=== PATIENT | male | born 1940 | race Caucasian/White ===

== ENCOUNTER 2016-05-23 13:34 | Emergency (ER) | payer MEDICARE, OTHER ==
[2016-05-23] MEDS ORDERED: Sodium Chloride 0.9% 1,000 ML IV ONE (13:54)
--- NOTE | 2016-05-23 13:56 | EDM.PDOC ---
ED HPI GI/ABDOMINAL - General Chief Complaint: Abdominal Pain Stated Complaint: STOMACH PAIN Time Seen by Provider: 05/23/16 13:54 Source of Information: Reports: Patient History Limitations: Reports: No limitations - History of Present Illness INITIAL COMMENTS - FREE TEXT/NARRATIVE: 76-year-old male presents to the ED with diffuse abdominal pain. He reports the pain is constant without colicky component. Spelled primarily in the upper abdomen. Patient states it feels similar to what he is 2 years ago when he had a small bowel obstruction. He did have to go to the OR and Dr. Page and released adhesions 2 repair his small bowel obstruction. Of note he had no previous abdominal surgery prior to that bowel obstruction. He reports she's not passing any flatus. Symptoms started about 0730 hours this morning. He has vomited once since he came to the hospital at partially undigested breakfast. Mostly bile. No blood. He smokes a pack of cigarettes per day he drinks at least 3 beers on a daily basis. Symptom Onset Date: 05/23/16 Symptom Onset Time: 07:30 Timing/Duration: Reports: Hour(s):, Constant, Getting worse, Gradual onset Location: other (Mostly periumbilical.) Quality: Reports: cramping, fullness, stabbing Severity: severe Worsens with: Reports: other (Nothing seems to make it better or worse. Vomiting perhaps his relieve the pain a small amount.) Context: Denies: sick contact, bad/questionable food, out of country travel, recent surgery, recent trauma, lifting, activity/exercise, other Associated Symptoms: Reports: denies other symptoms, loss of appetite. Denies: chest pain, back pain, testicular pain, groin pain, shoulder pain, constipation , diarrhea, bloody stools, fever/chills Treatments LAPPER: Reports: Other (see below) (None) - Related Data Allergies/ADRs: Allergies Allergy/AdvReac Type Severity Reaction Status Date / Time No Known Allergies Allergy Verified 05/23/16 13:45 Home Meds: Home Meds Albuterol/Ipratropium [Combivent] 2 puff INH QID #1 mdi 08/23/13 [Rx] Diltiazem [Cardizem CD] 180 mg PO DAILY #30 cap.cd 08/23/13 [Rx] Finasteride [Proscar] 5 mg PO DAILY 11/30/14 [History] Metoprolol Tartrate [Lopressor] 25 mg PO DAILY 11/30/14 [History] Multivitamins/Minerals/Lutein [Certavite SR with Lutein] 1 tab PO DAILY [History] Ranitidine HCl 300 mg PO DAILY 11/30/14 [History] Rosuvastatin [Crestor] 20 mg PO BEDTIME 11/30/14 [History] Pantoprazole [Protonix] 40 mg PO BID #30 tab.cr 12/01/14 [Rx] Sucralfate [Carafate] 1 gm PO Q6H #1200 ml 12/01/14 [Rx] Aspirin 81 mg PO BEDTIME 09/09/15 [History] Past Medical History HEENT History: Reports: Cataract, Impaired vision, Macular degeneration Other HEENT History: wears glasses Cardiovascular History: Reports: Afib (Hx), CAD, High cholesterol, Hypertension , [place], PTCA, SOB on exertion, Stents, Other (see below) Other Cardiovascular History: hyponatremia Respiratory History: Reports: Asthma, COPD, SOB (INCREASING) Gastrointestinal History: Reports: Diverticulosis, Gastritis, GERD, PUD ( Diagnosed about 8 yrs ago and was treated for H.pylori.), Other (see below) Other Gastrointestinal History: duodenitis, ulcers, esophogeal stricture Genitourinary History: Reports: BPH, Prostate disorder Musculoskeletal History: Reports: Osteoporosis Other Musculoskeletal History: Compression Fx x 3 Thoracic Neurological History: Reports: None Psychiatric History: Reports: None Endocrine/Metabolic History: Reports: None - Past Surgical History Female Surgical History: Social & Family History - Tobacco Use Smoking Status *Q: Current Every Day Smoker Years of Tobacco use: 50 Packs/Tins Daily: 0.5 Used Tobacco, but Quit: No Second Hand Smoke Exposure: No - Alcohol Use Days Per Week of Alcohol Use: 7 Number of Drinks Per Day: 3 Total Drinks Per Week: 21 - Recreational Drug Use Recreational Drug Use: No Drug Use in Last 12 Months: No - Living Situation & Occupation Living situation: Reports: Occupation: employed ED ROS GENERAL - Review of Systems Review Of Systems: See Below Constitutional: Reports: malaise, weakness, fatigue, decreased appetite. Denies : fever, chills, weight loss HEENT: Reports: No symptoms Respiratory: Reports: Shortness of Breath, Wheezing (Occasionally), Cough, Sputum (Chronic cough as he is a cigarette smoker.). Denies: Hemoptysis ( Usually brownish in color) Cardiovascular: Reports: Blood pressure problem, Dyspnea on exertion. Denies: Chest pain GI/Abdominal: Reports: Abdominal pain. Denies: Flatus (See history of present illness) : Reports: frequency (DrSherif usually x2.), other Musculoskeletal: Reports: neck pain, shoulder pain, back pain, joint pain ( Rogerio hips at times.) Skin: Reports: no symptoms Neurological: Reports: No Symptoms Psychiatric: Reports: No symptoms Hematologic/Lymphatic: Reports: no symptoms Immunologic: Reports: no symptoms ED EXAM, GI/ABD - Physical Exam Exam: See Below Exam Limited By: No limitations General Appearance: alert, moderate distress (Is in obvious discomfort.) Eyes: bilateral: normal appearance (No jaundice.) Throat/Mouth: Normal inspection, Normal lips, Normal oropharynx, Other Head: atraumatic, normocephalic Neck: normal inspection (Tongue is a little dry.), supple, non-tender, full range of motion. No: carotid bruit, lymphadenopathy (L), lymphadenopathy (R), thyromegaly Respiratory/Chest: decreased breath sounds, rhonchi (Decreased breath sounds to the posterior 30% of lung osorio.), wheezing ( Scattered rhonchi throughout both upper lobes. occasional expiratory wheeze.) Cardiovascular: regular rate, rhythm, no gallop, no JVD, no murmur GI/Abdominal: hyperactive bowel sounds (Throughout.), tenderness, distention ( Diffusely distended and tympanitic to percussion.), guarding (Mostly is just superior to the previous midline laparotomy wound. Can also palpate a quarter- sized hernia in this area.), rebound (Male) Exam: No hernia Back Exam: normal inspection, full range of motion. No: CVA tenderness (L), CVA tenderness (R) Extremities: normal inspection, normal range of motion, non-tender, no pedal edema, normal capillary refill Neurological: alert, oriented, CN II-XII intact, normal cognition, normal gait Psychiatric: normal affect, normal mood Skin Exam: Warm, Dry, Intact, Normal color, No rash EKG INTERPRETATION EKG Date: 05/23/16 Time: 14:15 Rhythm: NSR Rate (beats/min): 70 [place]: normal P-wave: present QRS: other (To is evident in V5 V6 leads 23 and aVF. 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 Also T waves are inverted in the 3 and aVF.) QT: prolonged (Mildly prolonged QT interval.) Course - Vital Signs Last Recorded V/S: Last Vital Signs Temp 35.9 C 05/23/16 13:45 Pulse 64 05/23/16 13:45 Resp 18 05/23/16 13:45 BP 200/98 H 05/23/16 13:45 Pulse Ox 99 05/23/16 13:45 - Orders/Labs/Meds Orders: Active Orders 24 hr Category Date Time Status EKG Documentation Completion [RC] STAT Care 05/23/16 13:55 Active Nasogastric Tube Management [Gastrointestinal Tube Mgmt Care 05/23/16 14:54 Active ] [RC] ASDIRECTED Sodium Chloride 0.9% @ 150 MLS/HR (1000ml Bag) Med 05/23/16 16:45 Ordered Sodium Chloride 0.9% [Normal Saline] 1,000 ml IV ASDIRECTED Nasogastric Orogastric Tube Insertion [OM.PC] Routine Oth 05/23/16 14:54 Ordered Medication Orders Sodium Chloride (Normal Saline) 1,000 mls @ 150 mls/hr IV ASDIRECTED ROXANNA Labs: Laboratory Tests 05/23/16 05/23/16 05/23/16 Range/Units 14:30 14:30 14:30 WBC 12.39 H (4.23-9.07) K/mm3 RBC 4.43 L (4.63-6.08) M/mm3 Hgb 14.6 (13.7-17.5) gm/L Hct 42.5 (40.1-51.0) % MCV 95.9 H (79.0-92.2) fl MCH 33.0 H (25.7-32.2) pg MCHC 34.4 (32.2-35.5) g/dl RDW Std Deviation 43.9 (35.1-43.9) fL Plt Count 261 (163-337) K/mm3 MPV 9.7 (9.4-12.3) fl Neutrophils % (Manual) 94 H (40-60) % Band Neutrophils % 0 (0-10) % Lymphocytes % (Manual) 5 L (20-40) % Atypical Lymphs % 0 % Monocytes % (Manual) 1 L (2-10) % Eosinophils % (Manual) 0 L (0.8-7.0) % Basophils % (Manual) 0 L (0.2-1.2) Platelet Estimate Adequate RBC Morph Comment Normal PT 10.1 (8.0-13.0) SECONDS INR 0.93 APTT (22-36) SECONDS Sodium 130 L (136-145) mEq/L Potassium 4.3 (3.5-5.1) mEq/L Chloride 96 L (98-107) mEq/L Carbon Dioxide 25 (21-32) mEq/L Anion Gap 13.3 (5-15) BUN 15 (7-18) mg/dL Creatinine 0.9 (0.7-1.3) mg/dL Est Cr Clr Drug Dosing 56.20 mL/min Estimated GFR (MDRD) > 60 (>60) mL/min BUN/Creatinine Ratio 16.7 (14-18) Glucose 142 H (83-115) mg/dL Calcium 9.3 (8.5-10.1) mg/dL Magnesium (1.8-2.4) mg/dl Total Bilirubin 0.7 (0.2-1.0) mg/dL AST 19 (15-37) U/L ALT 21 (16-63) U/L Alkaline Phosphatase 103 (46-116) U/L CK-MB (CK-2) (0-3.6) ng/ml Troponin I (0.00-0.056) ng/mL C-Reactive Protein 1.9 H* (<1.0) mg/dL Total Protein 7.6 (6.4-8.2) g/dl Albumin 4.1 (3.4-5.0) g/dl Globulin 3.5 gm/dL Albumin/Globulin Ratio 1.2 (1-2) Lipase 169 (73-393) U/L Urine Color (Yellow) Urine Appearance (Clear) Urine pH (5.0-8.0) Ur Specific [place] (1.005-1.030) Urine Protein (Negative) Urine Glucose (UA) (Negative) Urine Ketones (Negative) Urine Occult Blood (Negative) Urine Nitrite (Negative) Urine Bilirubin (Negative) Urine Urobilinogen (0.2-1.0) Ur Leukocyte Esterase (Negative) Urine RBC (0-5) /hpf Urine WBC (0-5) /hpf Ur Epithelial Cells (0-5) /hpf Urine Bacteria (FEW) /hpf Urine Mucus (FEW) /hpf 05/23/16 05/23/16 05/23/16 Range/Units 14:30 14:30 15:00 WBC (4.23-9.07) K/mm3 RBC (4.63-6.08) M/mm3 Hgb (13.7-17.5) gm/L Hct (40.1-51.0) % MCV (79.0-92.2) fl MCH (25.7-32.2) pg MCHC (32.2-35.5) g/dl RDW Std Deviation (35.1-43.9) fL Plt Count (163-337) K/mm3 MPV (9.4-12.3) fl Neutrophils % (Manual) (40-60) % Band Neutrophils % (0-10) % Lymphocytes % (Manual) (20-40) % Atypical Lymphs % % Monocytes % (Manual) (2-10) % Eosinophils % (Manual) (0.8-7.0) % Basophils % (Manual) (0.2-1.2) Platelet Estimate RBC Morph Comment PT (8.0-13.0) SECONDS INR APTT 23 (22-36) SECONDS Sodium (136-145) mEq/L Potassium (3.5-5.1) mEq/L Chloride (98-107) mEq/L Carbon Dioxide (21-32) mEq/L Anion Gap (5-15) BUN (7-18) mg/dL Creatinine (0.7-1.3) mg/dL Est Cr Clr Drug Dosing mL/min Estimated GFR (MDRD) (>60) mL/min BUN/Creatinine Ratio (14-18) Glucose (83-115) mg/dL Calcium (8.5-10.1) mg/dL Magnesium 1.8 (1.8-2.4) mg/dl Total Bilirubin (0.2-1.0) mg/dL AST (15-37) U/L ALT (16-63) U/L Alkaline Phosphatase (46-116) U/L CK-MB (CK-2) 2.7 (0-3.6) ng/ml Troponin I < 0.017 (0.00-0.056) ng/mL C-Reactive Protein (<1.0) mg/dL Total Protein (6.4-8.2) g/dl Albumin (3.4-5.0) g/dl Globulin gm/dL Albumin/Globulin Ratio (1-2) Lipase (73-393) U/L Urine Color Yellow (Yellow) Urine Appearance Clear (Clear) Urine pH 6.5 (5.0-8.0) Ur Specific [place] 1.025 (1.005-1.030) Urine Protein 1+ H (Negative) Urine Glucose (UA) Negative (Negative) Urine Ketones Trace H (Negative) Urine Occult Blood Negative (Negative) Urine Nitrite Negative (Negative) Urine Bilirubin Negative (Negative) Urine Urobilinogen 0.2 (0.2-1.0) Ur Leukocyte Esterase Negative (Negative) Urine RBC 0-5 (0-5) /hpf Urine WBC 0-5 (0-5) /hpf Ur Epithelial Cells 0-5 (0-5) /hpf Urine Bacteria Moderate H (FEW) /hpf Urine Mucus Moderate H (FEW) /hpf Meds: Medications Generic Name Dose Route Start Last Admin Trade Name Freq PRN Reason Stop Dose Admin Sodium Chloride 1,000 mls @ 150 mls/hr 05/23/16 16:45 Normal Saline IV ASDIRECTED ROXANNA Discontinued Medications Generic Name Dose Route Start Last Admin Trade Name Freq PRN Reason Stop Dose Admin Hydromorphone HCl 1 mg 05/23/16 14:02 05/23/16 15:02 Dilaudid IVPUSH 05/23/16 14:03 1 mg ONETIME ONE Administration Sodium Chloride 1,000 mls @ 500 mls/hr 05/23/16 13:54 05/23/16 15:00 Normal Saline IV 05/23/16 15:53 500 mls/hr ONETIME ONE Administration Lidocaine HCl 10 ml 05/23/16 15:04 05/23/16 16:44 Xylocaine 2% Jelly MUCMEM 05/23/16 15:05 10 ml ONETIME ONE Administration Metoclopramide HCl 10 mg 05/23/16 14:02 05/23/16 15:00 Reglan IVPUSH 03/22/17 14:03 10 mg ONETIME ONE Administration - Radiology Interpretation Free Text/Narrative:: 76-year-old male presents the ED with diffuse constant abdominal pain since shortly after awakening this morning. States around 0730 hours to 8:00 he developed upper abdominal constant aching pain which is progressively worsened. He is vomited once in the ED it mostly of undigested breakfast in bilious material. No blood noted. He recognizes he has not passed any flatus for the last 5 hours per rectum. States he had 3 somewhat loose bowel movements last evening however. No blood noted. Past history of bowel obstruction about 2 years ago requiring open laparotomy for release of adhesions. It's unclear whether there was an internal hernia. This was repaired by Dr. Fátima Page. She is a smoker pack per day and drinks 3 beers daily. Examination of his abdomen is compatible with bowel obstruction. He is distended and diffusely tympanitic to percussion with hypoactive bowel sounds. Plan repeat chest x-ray one view abdomen. Routine labs include serum lipase. PT PTT to be done as well. IV normal saline at 500 mils per hour. Given Dilaudid 1 mg IV and Reglan 10 mg IV for pain and nausea relief - Re-Assessments/Exams Free Text/Narrative Re-Assessment/Exam: 05/23/16 15:03 x-rays of the abdomen reveal obvious small bowel obstruction which appears to be distal. Plan nasogastric tube will be inserted via the left nostril. He will have to be admitted to the hospital. We'll have to see if there is going to be a bed available here or notified of that elsewhere. I did speak with Dr. Gavin Page who performed his last surgeries she certainly willing to see him in consultation probably tomorrow morning. She would prefer a 12 to 24-hour course of conservative management with nasogastric tube suction and pain pain management and IV fluids and see how he does. 05/23/16 15:27 Labs are back showing an elevated white count of 12.39. Differential pending hemoglobin is 14.6 hematocrit 42.5 platelets 261,000. PT is 10.1 INR 0.93 PTT is 23. Sodium is low at 130 potassium is 4.3 glucose 142 CRP is 1.9 lipase is 169. 05/23/16 16:22 at present no beds are available in [facility]. Since the patient has records to [facility] he prefers to go to [facility] if possible. Therefore call one call at [facility] to set up transfer. 05/23/16 16:50 patient has been accepted at [facility].Dr Cano--hospitalist has accepted care. CXR and KUB sent by Pacs. Departure - Departure Time of Disposition: 16:53 Disposition: DC/Tfer to Acute Hospital 02 Condition: fair Clinical Impression: Small bowel obstruction, Hyponatremia Forms: ED Department Discharge Additional Instructions: He should transferred to [facility] because her hospitals on diversion. - My Orders Last 24 Hours: My Active Orders 05/23/16 13:55 EKG Documentation Completion [RC] STAT 05/23/16 14:54 Nasogastric Tube Management [Gastrointestinal Tube Mgmt] [RC] ASDIRECTED Nasogastric Orogastric Tube Insertion [OM.PC] Routine 05/23/16 16:45 Sodium Chloride 0.9% @ 150 MLS/HR (1000ml Bag) Sodium Chloride 0.9% [Normal Saline] 1,000 ml IV ASDIRECTED - Assessment/Plan Last 24 Hours: My Active Orders 05/23/16 13:55 EKG Documentation Completion [RC] STAT 05/23/16 14:54 Nasogastric Tube Management [Gastrointestinal Tube Mgmt] [RC] ASDIRECTED Nasogastric Orogastric Tube Insertion [OM.PC] Routine 05/23/16 16:45 Sodium Chloride 0.9% @ 150 MLS/HR (1000ml Bag) Sodium Chloride 0.9% [Normal Saline] 1,000 ml IV ASDIRECTED
[2016-05-23] MEDS ORDERED: Metoclopramide 10 MG/2 ML SDV IVPUSH ONE (14:02)
[2016-05-23] MEDS ORDERED: HYDROmorphone 1 MG/ML Syringe IVPUSH ONE (14:02)
[2016-05-23] MEDS ORDERED: Lidocaine 2% Jelly 10 ML Urojet MUCMEM ONE (15:04)
--- NOTE | 2016-05-23 15:23 | CR ---
Chest: Frontal view of the chest was obtained. Comparison: Previous chest x-ray of 08/19/13. Heart size is normal. Tortuous thoracic aorta is seen. Slight granulomatous change felt to be present within the right upper lung which appears to be calcified. Lungs otherwise are clear. Mild degenerative change is scattered within the spine. Impression: 1. Incidental findings. Nothing acute is appreciated on frontal chest x-ray. Diagnostic code #2
--- NOTE | 2016-05-23 15:23 | CR ---
Abdomen: Supine view of the abdomen was obtained. Comparison: Previous abdominal x-ray of 08/20/13 is available. Dilated gas-filled loops of small bowel are seen primarily within the left abdomen. Lesser gas noted within more distal ileal loops. Small amount of rectal gas is seen. Bony structures are osteopenic. Degenerative change seen within the spine. Vascular calcification is present. Impression: 1. Gas dilated loops of small bowel suspicious for developing small bowel obstruction within the mid to distal small bowel. 2. Other incidental findings. Diagnostic code #3
[2016-05-23] MEDS ORDERED: Sodium Chloride 0.9% 1,000 ML IV SCH (16:45)
[2016-05-23 17:56] VITALS: BP 167/91
== END 2016-05-23 17:32 ==
LOC: JD.ED 13:34
DX: K56.69 Other intestinal obstruction (principal); E87.1 Hypo-osmolality and hyponatremia; I10 Essential (primary) hypertension; I25.2 Old myocardial infarction; I25.10 Atherosclerotic heart disease of native coronary artery without angina pectoris; E78.00 Pure hypercholesterolemia, unspecified; J45.909 Unspecified asthma, uncomplicated; J44.9 Chronic obstructive pulmonary disease, unspecified; M81.0 Age-related osteoporosis without current pathological fracture; K21.9 Gastro-esophageal reflux disease without esophagitis; F17.210 Nicotine dependence, cigarettes, uncomplicated; Z79.899 Other long term (current) drug therapy
CPT/HCPCS: 36415; 71010; 74000; 80053; 81001; 82553; 83690; 83735; 84484; 85025; 85610; 85730; 86140; 93005; 96361; 96374; 96375; 99285; J1170; J2765; J7040

== ENCOUNTER 2016-07-24 08:00 | Day surgery (SDC) | payer MEDICARE, OTHER ==
[~2016-07-24 08:00] MED LIST: Lactated Ringers 1,000 ML IV SCH; Lidocaine 1%/Sod Bicarbonate in NS 8.4% 1 ML Syringe PRN; Sodium Chloride 0.9% 10 ML Syringe FLUSH PRN
--- NOTE | 2016-07-24 08:24 | PCM.CONS ---
H&P History of Present Illness - General Date of Service: 07/24/16 Source of Information: Patient History Limitations: Reports: No Limitations - History of Present Illness Initial Comments - Free Text/Narative: The patient is a 76-year-old man who is a patient of Dr. Edy Asencio. They present today for screening colonoscopy, average risk, last colonoscopy 2006 with findings of diverticulosis. They were last seen in the clinic on 06/21. There have been no changes in their health since that time. They have no questions or concerns about today's procedures. ROS: No complaints today. - Related Data Allergies/Adverse Reactions: Allergies Allergy/AdvReac Type Severity Reaction Status Date / Time No Known Allergies Allergy Verified 05/23/16 13:45 Home Medications: Home Meds Albuterol/Ipratropium [Combivent] 2 puff INH QID #1 mdi 08/23/13 [Rx] Diltiazem [Cardizem CD] 180 mg PO DAILY #30 cap.cd 08/23/13 [Rx] Finasteride [Proscar] 5 mg PO DAILY 11/30/14 [History] Metoprolol Tartrate [Lopressor] 25 mg PO DAILY 11/30/14 [History] Multivitamins/Minerals/Lutein [Certavite SR with Lutein] 1 tab PO DAILY [History] Ranitidine HCl 300 mg PO DAILY 11/30/14 [History] Rosuvastatin [Crestor] 20 mg PO BEDTIME 11/30/14 [History] Pantoprazole [ProTONIX] 40 mg PO BID #30 tab.cr 12/01/14 [Rx] Sucralfate [Carafate] 1 gm PO Q6H #1200 ml 12/01/14 [Rx] Aspirin 81 mg PO BEDTIME 09/09/15 [History] Past Medical History HEENT History: Reports: Cataract, Impaired Vision, Macular Degeneration Other HEENT History: wears glasses Cardiovascular History: Reports: Afib (Hx), CAD, High Cholesterol, Hypertension , [place], PTCA, SOB on Exertion, Stents, Other (See Below) Other Cardiovascular History: hyponatremia Respiratory History: Reports: Asthma, COPD, SOB (INCREASING) Gastrointestinal History: Reports: Diverticulosis, Gastritis, GERD, PUD ( Diagnosed about 8 yrs ago and was treated for H.pylori.), Other (See Below) Other Gastrointestinal History: duodenitis, ulcers, esophogeal stricture Genitourinary History: Reports: BPH, Prostate Disorder Musculoskeletal History: Reports: Osteoporosis Other Musculoskeletal History: Compression Fx x 3 Thoracic Neurological History: Reports: None Psychiatric History: Reports: None Endocrine/Metabolic History: Reports: None - Past Surgical History Female Surgical History: Social & Family History - Tobacco Use Smoking Status *Q: Current Every Day Smoker Years of Tobacco use: 50 Packs/Tins Daily: 0.5 Used Tobacco, but Quit: No Second Hand Smoke Exposure: No - Caffeine Use Caffeine Use: Reports: None, Soda - Alcohol Use Days Per Week of Alcohol Use: 7 Number of Drinks Per Day: 3 Total Drinks Per Week: 21 - Recreational Drug Use Recreational Drug Use: No Drug Use in Last 12 Months: No - Living Situation & Occupation Living situation: Reports: Occupation: Employed H&P Review of Systems - Review of Systems: Review Of Systems: ROS reveals no pertinent complaints other than HPI. Exam - Exam Exam: See Below - Vital Signs Weight: 165 lb - Exam General: Alert, Oriented, Cooperative HEENT: Hearing Intact. No: Scleral Icterus Neck: Trachea Midline Lungs: Normal Respiratory Effort Cardiovascular: Regular Rate Abdomen: No: Peritoneal Signs, Distention Rectal (Males) Exam: Deferred Extremities: No: Cyanosis Skin: Warm, Dry, Intact Neurological: Cranial Nerves Intact, Normal Speech. No: Focal Deficit Neuro Extensive - Mental Status: Alert, Oriented x3, Normal Mood/Affect, Normal Cognition Psychiatric: Alert, Normal Affect, Normal Mood Consult PN Assessment/Plan Procedures: Procedures AIRWAY INHALATION TREATMENT (08/13/13) ASSAY OF LIPASE (05/23/16) ASSAY OF MAGNESIUM (05/23/16) ASSAY OF PHOSPHORUS (08/13/13) ASSAY OF SERUM ALBUMIN (08/13/13) ASSAY OF TROPONIN QUANT (05/23/16) ASSAY OF URINE CHLORIDE (08/13/13) ASSAY OF URINE OSMOLALITY (08/13/13) ASSAY OF URINE POTASSIUM (08/13/13) ASSAY OF URINE SODIUM (08/13/13) ASSAY THYROID STIM HORMONE (08/13/13) BLOOD CULTURE FOR BACTERIA (08/13/13) BLOOD TYPING SEROLOGIC ABO (08/13/13) BLOOD TYPING SEROLOGIC RH(D) (08/13/13) C DIFF AMPLIFIED PROBE (08/13/13) C-REACTIVE PROTEIN (05/23/16) CHEST X-RAY 1 VIEW FRONTAL (05/23/16) CHEST X-RAY 2VW FRONTAL&LATL (08/13/13) COMPLETE CBC AUTOMATED (08/13/13) COMPLETE CBC W/AUTO DIFF WBC (05/23/16) COMPREHEN METABOLIC PANEL (05/23/16) CREATINE MB FRACTION (05/23/16) CT ABD & PELVIS W/O CONTRAST (08/13/13) CT THORAX W/O DYE (08/13/13) CULTR BACTERIA EXCEPT BLOOD (08/13/13) DXA BONE DENSITY AXIAL (10/05/15) EGD BIOPSY SINGLE/MULTIPLE (09/12/15) EGD DIAGNOSTIC BRUSH WASH (01/02/16) ELECTROCARDIOGRAM TRACING (05/23/16) ELECTROLYTE PANEL (12/01/14) EMERGENCY DEPT VISIT (05/23/16) EMERGENCY DEPT VISIT (08/10/13) EVALUATE PT USE OF INHALER (08/13/13) GAIT TRAINING THERAPY (08/13/13) GLUCOSE BLOOD TEST (08/13/13) HYDRATE IV INFUSION ADD-ON (05/23/16) MEASURE BLOOD OXYGEN LEVEL (08/13/13) MEASURE BLOOD OXYGEN LEVEL (08/13/13) MEASURE BLOOD OXYGEN LEVEL (08/13/13) METABOLIC PANEL TOTAL CA (09/12/15) PROTHROMBIN TIME (05/23/16) PT EVALUATION (08/13/13) RBC ANTIBODY SCREEN (08/13/13) RBC SED RATE AUTOMATED (08/13/13) ROUTINE VENIPUNCTURE (05/23/16) SMEAR GRAM STAIN (08/13/13) THER/PROPH/DIAG INJ IV PUSH (05/23/16) THERAPEUTIC ACTIVITIES (08/13/13) THERAPEUTIC EXERCISES (08/13/13) THROMBOPLASTIN TIME PARTIAL (05/23/16) TISSUE EXAM BY PATHOLOGIST (12/01/14) TISSUE EXAM BY PATHOLOGIST (08/13/13) TTE W/DOPPLER COMPLETE (08/13/13) TX/PRO/DX INJ NEW DRUG ADDON (05/23/16) UPR/LXTR ART STDY 3+ LVLS (11/19/14) URINALYSIS AUTO W/SCOPE (05/23/16) URINE BACTERIA CULTURE (08/13/13) VANOMYCIN DNA AMP PROBE (08/13/13) X-RAY EXAM OF ABDOMEN (05/23/16) X-RAY EXAM OF ABDOMEN (08/10/13) X-RAY EXAM OF HIP (08/13/13) (1) Encounter for screening colonoscopy SNOMED Code(s): 520259578, 849909628 Code(s): Z12.11 - ENCOUNTER FOR SCREENING FOR MALIGNANT NEOPLASM OF COLON Current Visit: Yes Problem List Initiated/Reviewed/Updated: Yes Plan: 76-year-old man presenting for screening colonoscopy Proceed as planned. Risks and benefits reviewed without further questions or concerns. Consent obtained.
--- NOTE | 2016-07-24 08:31 | PCM.PREANE ---
Preanesthetic Assessment - Anesthesia/Transfusion/Family Hx Anesthesia History: Prior Anesthesia Without Reaction Family History of Anesthesia Reaction: No Transfusion History: No Prior Transfusion(s) Intubation History: Unknown - Review of Systems General: No Symptoms Pulmonary: No Symptoms Cardiovascular: No Symptoms Gastrointestinal: No symptoms Neurological: No Symptoms Other: Reports: None - Physical Assessment NPO Status Date: 07/23/16 NPO Status Time: 21:30 O2 Sat by Pulse Oximetry: 99 Respiratory Rate: 20 Vital Signs: Last Vital Signs Temp 36.3 C 07/24/16 08:00 Pulse 64 07/24/16 08:00 Resp 20 07/24/16 08:00 BP 146/70 H 07/24/16 08:00 Pulse Ox 99 07/24/16 08:00 Height: 1.57 m Weight: 74.843 kg ASA Class: 2 Mental Status: Alert & Oriented x3 Airway Class: Mallampati = 2 Dentition: Reports: Normal Dentition Thyro-Mental Finger Breadths: 3 Mouth Opening Finger Breadths: 3 ROM/Head Extension: Full Lungs: Clear to auscultation, Normal respiratory effort Cardiovascular: Regular Rate, Regular Rhythm - Allergies Allergies/Adverse Reactions: Allergies Allergy/AdvReac Type Severity Reaction Status Date / Time No Known Allergies Allergy Verified 05/23/16 13:45 - Anesthesia Plan Beta Zoey: Metoprolol Med Last Dose Date: 07/23/16 Med Last Dose Time: 07:30 - Acknowledgements Anesthesia Type Planned: MAC Pt an Appropriate Candidate for the Planned Anesthesia: Yes Alternatives and Risks of Anesthesia Discussed w Pt/Guardian: Yes Pt/Guardian Understands and Agrees with Anesthesia Plan: Yes PreAnesthesia Questionnaire HEENT History: Reports: Cataract, Impaired Vision, Macular Degeneration Other HEENT History: wears glasses Cardiovascular History: Reports: Afib (Hx), CAD, High Cholesterol, Hypertension , [place], PTCA, SOB on Exertion (pt states uses inhaler only when needed-last time was on Saturday), Stents, Other (See Below) Other Cardiovascular History: hyponatremia Respiratory History: Reports: Asthma, COPD, SOB (INCREASING, pt states with exertion, denies with flight of stairs) Gastrointestinal History: Reports: Diverticulosis, Gastritis, GERD, PUD ( Diagnosed about 8 yrs ago and was treated for H.pylori.), Other (See Below) Other Gastrointestinal History: duodenitis, ulcers, esophogeal stricture Genitourinary History: Reports: BPH, Prostate Disorder Musculoskeletal History: Reports: Osteoporosis Other Musculoskeletal History: Compression Fx x 3 Thoracic Neurological History: Reports: None Psychiatric History: Reports: None Endocrine/Metabolic History: Reports: None - Past Surgical History Head Surgeries/Procedures: Reports: None HEENT Surgical History: Reports: Cataract Surgery Cardiovascular Surgical History: Reports: Coronary Artery Stent Respiratory Surgical History: Reports: None GI Surgical History: Reports: Colonoscopy, EGD, Small Bowel, Other (See Below) ( laparotomy) Female Surgical History: Reports: None Male Surgical History: Reports: None Endocrine Surgical History: Reports: None Neurological Surgical History: Reports: None Musculoskeletal Surgical History: Reports: None Oncologic Surgical History: Reports: None Dermatological Surgical History: Reports: None - SUBSTANCE USE Smoking Status *Q: Current Every Day Smoker Tobacco Use Within Last Twelve Months: Cigarettes (1 PPD X 60 yrs) Second Hand Smoke Exposure: No Days Per Week of Alcohol Use: 7 Number of Drinks Per Day: 3 Total Drinks Per Week: 21 Recreational Drug Use History: No - HOME MEDS Home Medications: Home Meds Albuterol/Ipratropium [Combivent] 2 puff INH QID #1 mdi 08/23/13 [Rx] Diltiazem [Cardizem CD] 180 mg PO DAILY #30 cap.cd 08/23/13 [Rx] Finasteride [Proscar] 5 mg PO DAILY 11/30/14 [History] Metoprolol Tartrate [Lopressor] 25 mg PO DAILY 11/30/14 [History] Multivitamins/Minerals/Lutein [Certavite SR with Lutein] 1 tab PO DAILY [History] Ranitidine HCl 300 mg PO DAILY 11/30/14 [History] Rosuvastatin [Crestor] 20 mg PO BEDTIME 11/30/14 [History] Pantoprazole [ProTONIX] 40 mg PO BID #30 tab.cr 12/01/14 [Rx] Sucralfate [Carafate] 1 gm PO Q6H #1200 ml 12/01/14 [Rx] Aspirin 81 mg PO BEDTIME 09/09/15 [History] - CURRENT (IN HOUSE) MEDS Current Meds: Current Medications Lactated Ringer's (Ringers, Lactated) 1,000 mls @ 125 mls/hr IV ASDIRECTED ROXANNA Stop: 05/23/17 23:00 Last Admin: 07/24/16 08:15 Dose: 125 mls/hr Lidocaine/Sodium Bicarbonate (Buffered Lidocaine 1% In Ns 8.4%) 0.25 ml .XX ONETIME PRN PRN Reason: Prior to IV Start Stop: 07/24/16 18:00 Last Admin: 07/24/16 08:15 Dose: 0.25 ml Sodium Chloride (Saline Flush) 10 ml FLUSH ASDIRECTED PRN PRN Reason: Keep Vein Open Stop: 07/24/16 18:00 Discontinued Medications Propofol (Diprivan 20 Ml) Confirm Administered Dose 200 mg .ROUTE .STK-MED ONE Stop: 07/24/16 08:34
[2016-07-24] MEDS ORDERED: Propofol 200 MG/20 ML SDV ONE (08:33)
--- NOTE | 2016-07-24 09:17 | PCM48HPAN ---
Post Anesthesia Note - EVALUATION WITHIN 48HRS OF ANESTHETIC Vital Signs in Normal Range: Yes Patient Participated in Evaluation: Yes Respiratory Function Stable: Yes Airway Patent: Yes Cardiovascular Function Stable: Yes Hydration Status Stable: Yes Pain Control Satisfactory: Yes Nausea and Vomiting Control Satisfactory: Yes Mental Status Recovered: Yes
--- NOTE | 2016-07-24 09:32 | PCM.OPNOTE ---
- General Post-Op/Procedure Note Date of Surgery/Procedure: 07/24/16 Operative Procedure(s): Screening colonoscopy Pre Op Diagnosis: Encounter for screening colonoscopy Post-Op Diagnosis: Diverticulosis Anesthesia Technique: MAC Primary Surgeon: Fátima Page Anesthesia Provider: Joelle Hilario Fluid Replacement, Intraop: 650 (mL crystalloid ) EBL in mLs: 0 Complications: None Condition: Good Free Text/Narrative:: INDICATION FOR PROCEDURE: The patient is a 76-year-old man who was referred to me by Dr. Edy Asencio for evaluation for screening colonoscopy. Performing a screening colonoscopy and the associated risks of the procedure had been discussed with the patient. His last colonoscopy was in 2006, he had no polyps at that time. The patient found these risks acceptable and agreed to proceed. DESCRIPTION OF PROCEDURE: The patient was taken to the operating room and placed in left lateral decubitus position. After induction of adequate sedation , a digital rectal exam was performed which was unremarkable. The patient's prostate was nonnodular and not significantly enlarged. An adult Olympus colonoscope was inserted into the rectum and guided under direct visualization to the appendiceal orifice and ileocecal valve. The scope was then slowly withdrawn through the colon. The quality of the prep was excellent. There was no evidence of angiodysplasias or mass lesions. There was severe diverticulosis of the sigmoid colon. There were a few patchy erythematous areas hinting and may be very slight diverticulitis. The scope was withdrawn into the rectum and retroflexed. There was no significant prominence of the patient's internal hemorrhoids. The scope was straightened, the colon was desufflated, and the scope was withdrawn. The patient was awakened from sedation and transferred to the recovery room in stable condition having tolerated the procedure well. POSTOPERATIVE PLAN: The patient does not require any treatment for the mild patchy erythematous areas noted in the sigmoid colon. He is asymptomatic. He will not need a repeat colonoscopy unless he has a change in bowel habits or other concerning symptoms. He is to call the office with any questions or concerns. Due to his diverticulosis, a high-fiber diet and avoiding constipation is recommended.
[2016-07-24 09:52] VITALS: BP 116/72
== END 2016-07-24 09:50 | disposition home or self-care (01) ==
LOC: JD.SDS 08:00
PROVIDERS: ATTEND Surgery
DX: Z12.11 Encounter for screening for malignant neoplasm of colon (principal); K57.30 Diverticulosis of large intestine without perforation or abscess without bleeding; I10 Essential (primary) hypertension; J44.9 Chronic obstructive pulmonary disease, unspecified; F17.210 Nicotine dependence, cigarettes, uncomplicated; Z95.5 Presence of coronary angioplasty implant and graft; Z98.890 Other specified postprocedural states; N40.0 Benign prostatic hyperplasia without lower urinary tract symptoms; E87.1 Hypo-osmolality and hyponatremia
CPT/HCPCS: G0121; J7120; J2704

== ENCOUNTER 2017-08-15 17:19 | Emergency (ER) | payer OTHER, MEDICARE ==
[2017-08-15 17:37] VITALS: BP 133/75
[2017-08-15] MEDS ORDERED: Sodium Chloride 0.9% 10 ML Syringe FLUSH PRN ×2 (17:42→19:53)
[2017-08-15] MEDS ORDERED: Ondansetron 4 MG/2 ML SDV IVPUSH ONE (17:43)
[2017-08-15] MEDS ORDERED: Sodium Chloride 0.9% 1,000 ML IV SCH (17:45)
[2017-08-15] MEDS ORDERED: HYDROmorphone 0.5 MG/0.5 ML SYRINGE IVPUSH ONE (18:11)
--- NOTE | 2017-08-15 18:18 | EDM.PDOC ---
ED HPI GENERAL MEDICAL PROBLEM - General Chief Complaint: Abdominal Pain Stated Complaint: ABDOMINAL PAIN Time Seen by Provider: 08/15/17 17:47 Source of Information: Reports: Patient History Limitations: Reports: No Limitations - History of Present Illness INITIAL COMMENTS - FREE TEXT/NARRATIVE: Patient is a 77-year-old male who presents to the ED complaining of lower abdominal pain. Pain is sharp and crampy in nature localized with no radiation. This started this past Saturday and has progressively gotten worse since. He's been nauseated with multiple episodes of emesis. Unable to eat or drink anything since Saturday. He is concerned that he has twisted bowel again. He has a history resection of colon May 2016 for similar symptoms. In addition he states portion of the small bowel had to be resected [address] Page. He has a large surgical incision midline with a large ventral and inguinal hernia present as well to the lower border. Upon admission pain is severe in nature. There's been no documented fever, chest pain, shortness of breath, dysuria, hematuria, bloody emesis, or any additional complaints. States he's had one loose bowel movement yesterday with no blood present. He has not been passing any gas but notes increasing burping. Lower Abdomen Pain Score (Numeric/FACES): 8 - Related Data Allergies Allergy/AdvReac Type Severity Reaction Status Date / Time No Known Allergies Allergy Verified 08/15/17 17:37 Home Meds: Home Meds Diltiazem [Cardizem CD] 180 mg PO DAILY #30 cap.cd 08/23/13 [Rx] Finasteride [Proscar] 5 mg PO DAILY 11/30/14 [History] Metoprolol Tartrate [Lopressor] 25 mg PO DAILY 11/30/14 [History] Multivitamins/Minerals/Lutein [Certavite SR with Lutein] 1 tab PO DAILY [History] Ranitidine HCl 150 mg PO BID 11/30/14 [History] Rosuvastatin [Crestor] 20 mg PO BEDTIME 11/30/14 [History] Pantoprazole [ProTONIX] 40 mg PO BID #30 tab.cr 12/01/14 [Rx] Aspirin 81 mg PO BEDTIME 09/09/15 [History] Albuterol/Ipratropium [Combivent] 2 puff INH Q4H PRN 08/15/17 [History] Cholecalciferol (Vitamin D3) [Vitamin D3] 2,000 unit PO DAILY 08/15/17 [History] Denosumab [Prolia] 1 ml SUBCUT ASDIRECTED 08/15/17 [History] Sucralfate [Carafate] 1 gm PO DAILY 08/15/17 [History] Past Medical History HEENT History: Reports: Cataract, Impaired Vision, Macular Degeneration Other HEENT History: wears glasses Cardiovascular History: Reports: Afib (Hx), CAD, High Cholesterol, Hypertension , [place], PTCA, SOB on Exertion (pt states uses inhaler only when needed-last time was on Saturday), Stents, Other (See Below) Other Cardiovascular History: hyponatremia Respiratory History: Reports: Asthma, COPD, SOB (INCREASING, pt states with exertion, denies with flight of stairs) Gastrointestinal History: Reports: Diverticulosis, Gastritis, GERD, PUD ( Diagnosed about 8 yrs ago and was treated for H.pylori.), Other (See Below) Other Gastrointestinal History: duodenitis, ulcers, esophogeal stricture Genitourinary History: Reports: BPH, Prostate Disorder Musculoskeletal History: Reports: Osteoporosis Other Musculoskeletal History: Compression Fx x 3 Thoracic Neurological History: Reports: None Psychiatric History: Reports: None Endocrine/Metabolic History: Reports: None - Past Surgical History Head Surgeries/Procedures: Reports: None HEENT Surgical History: Reports: Cataract Surgery Cardiovascular Surgical History: Reports: Coronary Artery Stent Respiratory Surgical History: Reports: None GI Surgical History: Reports: Colonoscopy, EGD, Small Bowel, Other (See Below) ( laparotomy) Female Surgical History: Reports: None Male Surgical History: Reports: None Endocrine Surgical History: Reports: None Neurological Surgical History: Reports: None Musculoskeletal Surgical History: Reports: None Oncologic Surgical History: Reports: None Dermatological Surgical History: Reports: None Social & Family History - Caffeine Use Caffeine Use: Reports: None, Soda - Living Situation & Occupation Living situation: Reports: Occupation: Employed ED ROS GENERAL - Review of Systems Review Of Systems: ROS reveals no pertinent complaints other than HPI. ED EXAM, GI/ABD - Physical Exam Exam: See Below Exam Limited By: No Limitations General Appearance: Alert, WD/WN, Moderate Distress Ears: Hearing Grossly Normal Nose: Normal Inspection Throat/Mouth: Normal Voice, No Airway Compromise Neck: Normal Inspection, Supple Respiratory/Chest: No Respiratory Distress, Lungs Clear, Normal Breath Sounds, No Accessory Muscle Use, Chest Non-Tender Cardiovascular: Normal Peripheral Pulses, Regular Rate, Rhythm, No Murmur GI/Abdominal Exam: Distended, Tender (Suprapubic region along the left inguinal region with hernia present. ), Abnormal Bowel Sounds (hypoactive), Other ( Ventral Hernia present. Large surgical midline incision. No peritoneal findings. ) Back Exam: Normal Inspection Extremities: Normal Inspection Neurological: Alert, Oriented, CN II-XII Intact, Normal Cognition, No Motor/ Sensory Deficits Psychiatric: Normal Affect, Normal Mood Skin Exam: Warm, Dry, Intact, Normal Color Course - Vital Signs Last Recorded V/S: Last Vital Signs Temp 97.3 F 08/15/17 17:36 Pulse 63 08/15/17 17:36 Resp 16 08/15/17 17:36 BP 133/75 08/15/17 17:36 Pulse Ox 98 08/15/17 17:36 - Orders/Labs/Meds Orders: Active Orders 24 hr Category Date Time Status Peripheral IV Care [RC] . DIRECTED Care 08/15/17 17:42 Active Abdomen Series w Chest 1V [CR] Stat Exams 08/15/17 17:42 Taken CULTURE BLOOD [BC] Stat Lab 08/15/17 18:08 Received CULTURE BLOOD [BC] Stat Lab 08/15/17 18:15 Received Sodium Chloride 0.9% [Normal Saline] 1,000 ml Med 08/15/17 17:45 Active IV ASDIRECTED Sodium Chloride 0.9% [Saline Flush] Med 08/15/17 17:42 Active 10 ml FLUSH ASDIRECTED PRN Sodium Chloride 0.9% [Saline Flush] Med 08/15/17 19:53 Active 10 ml FLUSH ONETIME PRN Blood Culture x2 Reflex Set [OM.PC] Stat Oth 08/15/17 17:43 Ordered NG [Nasogastric Orogastric Tube Insertion] [OM.PC] Oth 08/15/17 18:10 Ordered Routine Peripheral IV Insertion Adult [OM.PC] Routine Oth 08/15/17 17:42 Ordered Medication Orders Sodium Chloride (Normal Saline) 1,000 mls @ 125 mls/hr IV ASDIRECTED ROXANNA Last Admin: 08/15/17 17:48 Dose: 125 mls/hr Sodium Chloride (Saline Flush) 10 ml FLUSH ASDIRECTED PRN PRN Reason: Keep Vein Open Last Admin: 08/15/17 17:48 Dose: 10 ml Sodium Chloride (Saline Flush) 10 ml FLUSH ONETIME PRN PRN Reason: IV FLUSH Last Admin: 08/15/17 20:14 Dose: 10 ml Labs: Laboratory Tests 08/15/17 08/15/17 08/15/17 Range/Units 17:30 17:30 17:30 WBC 7.92 (4.23-9.07) K/mm3 RBC 4.34 L (4.63-6.08) M/mm3 Hgb 13.9 (13.7-17.5) gm/L Hct 40.6 (40.1-51.0) % MCV 93.5 H (79.0-92.2) fl MCH 32.0 (25.7-32.2) pg MCHC 34.2 (32.2-35.5) g/dl RDW Std Deviation 42.0 (35.1-43.9) fL Plt Count 283 (163-337) K/mm3 MPV 9.1 L (9.4-12.3) fl Neutrophils % (Manual) 75 H (40-60) % Band Neutrophils % 2 (0-10) % Lymphocytes % (Manual) 16 L (20-40) % Atypical Lymphs % 0 % Monocytes % (Manual) 7 (2-10) % Eosinophils % (Manual) 0 L (0.8-7.0) % Basophils % (Manual) 0 L (0.2-1.2) Platelet Estimate Adequate RBC Morph Comment Normal PT 10.4 (9.5-12.1) SECONDS INR 0.95 APTT 27 (24-31) SECONDS Sodium 126 L (136-145) mEq/L Potassium 4.0 (3.5-5.1) mEq/L Chloride 92 L (98-107) mEq/L Carbon Dioxide 23 (21-32) mEq/L Anion Gap 15.0 (5-15) BUN 11 (7-18) mg/dL Creatinine 0.8 (0.7-1.3) mg/dL Est Cr Clr Drug Dosing 59.72 mL/min Estimated GFR (MDRD) > 60 (>60) mL/min BUN/Creatinine Ratio 13.8 L (14-18) Glucose 129 H (83-115) mg/dL Lactic Acid (0.4-2.0) mmol/L Calcium 9.5 (8.5-10.1) mg/dL Total Bilirubin 0.8 (0.2-1.0) mg/dL AST 20 (15-37) U/L ALT 21 (16-63) U/L Alkaline Phosphatase 61 (46-116) U/L C-Reactive Protein 1.2 H* (<1.0) mg/dL Total Protein 7.6 (6.4-8.2) g/dl Albumin 4.1 (3.4-5.0) g/dl Globulin 3.5 gm/dL Albumin/Globulin Ratio 1.2 (1-2) Lipase 135 (73-393) U/L Urine Color (Yellow) Urine Appearance (Clear) Urine pH (5.0-8.0) Ur Specific [place] (1.005-1.030) Urine Protein (Negative) Urine Glucose (UA) (Negative) Urine Ketones (Negative) Urine Occult Blood (Negative) Urine Nitrite (Negative) Urine Bilirubin (Negative) Urine Urobilinogen (0.2-1.0) Ur Leukocyte Esterase (Negative) Urine RBC (0-5) /hpf Urine WBC (0-5) /hpf Ur Epithelial Cells (0-5) /hpf Urine Bacteria (FEW) /hpf Urine Mucus (FEW) /hpf 08/15/17 08/15/17 08/15/17 Range/Units 18:08 21:10 21:40 WBC (4.23-9.07) K/mm3 RBC (4.63-6.08) M/mm3 Hgb (13.7-17.5) gm/L Hct (40.1-51.0) % MCV (79.0-92.2) fl MCH (25.7-32.2) pg MCHC (32.2-35.5) g/dl RDW Std Deviation (35.1-43.9) fL Plt Count (163-337) K/mm3 MPV (9.4-12.3) fl Neutrophils % (Manual) (40-60) % Band Neutrophils % (0-10) % Lymphocytes % (Manual) (20-40) % Atypical Lymphs % % Monocytes % (Manual) (2-10) % Eosinophils % (Manual) (0.8-7.0) % Basophils % (Manual) (0.2-1.2) Platelet Estimate RBC Morph Comment PT (9.5-12.1) SECONDS INR APTT (24-31) SECONDS Sodium 126 L (136-145) mEq/L Potassium 4.4 (3.5-5.1) mEq/L Chloride 90 L (98-107) mEq/L Carbon Dioxide 27 (21-32) mEq/L Anion Gap 13.4 (5-15) BUN 10 (7-18) mg/dL Creatinine 0.9 (0.7-1.3) mg/dL Est Cr Clr Drug Dosing 53.08 mL/min Estimated GFR (MDRD) > 60 (>60) mL/min BUN/Creatinine Ratio 11.1 L (14-18) Glucose 108 (83-115) mg/dL Lactic Acid 1.3 (0.4-2.0) mmol/L Calcium 8.9 (8.5-10.1) mg/dL Total Bilirubin (0.2-1.0) mg/dL AST (15-37) U/L ALT (16-63) U/L Alkaline Phosphatase (46-116) U/L C-Reactive Protein (<1.0) mg/dL Total Protein (6.4-8.2) g/dl Albumin (3.4-5.0) g/dl Globulin gm/dL Albumin/Globulin Ratio (1-2) Lipase (73-393) U/L Urine Color Yellow (Yellow) Urine Appearance Clear (Clear) Urine pH 7.0 (5.0-8.0) Ur Specific [place] 1.015 (1.005-1.030) Urine Protein Negative (Negative) Urine Glucose (UA) Negative (Negative) Urine Ketones 1+ H (Negative) Urine Occult Blood Negative (Negative) Urine Nitrite Negative (Negative) Urine Bilirubin Negative (Negative) Urine Urobilinogen 2.0 H (0.2-1.0) Ur Leukocyte Esterase Negative (Negative) Urine RBC Not seen (0-5) /hpf Urine WBC 0-5 (0-5) /hpf Ur Epithelial Cells 5-10 H (0-5) /hpf Urine Bacteria Not seen (FEW) /hpf Urine Mucus Not seen (FEW) /hpf Meds: Medications Generic Name Dose Route Start Last Admin Trade Name Freq PRN Reason Stop Dose Admin Sodium Chloride 1,000 mls @ 125 mls/hr 08/15/17 17:45 08/15/17 17:48 Normal Saline IV 125 mls/hr ASDIRECTED ROXANNA Administration Sodium Chloride 10 ml 08/15/17 17:42 08/15/17 17:48 Saline Flush FLUSH 10 ml ASDIRECTED PRN Administration Keep Vein Open Sodium Chloride 10 ml 08/15/17 19:53 08/15/17 20:14 Saline Flush FLUSH 10 ml ONETIME PRN Administration IV FLUSH Discontinued Medications Generic Name Dose Route Start Last Admin Trade Name Chanoq PRN Reason Stop Dose Admin Diatrizoate Meglum/Diatrizoate Sod 120 ml 08/15/17 19:53 08/15/17 20:14 Gastrografin 37% PO 08/15/17 19:54 90 ml ONETIME ONE Administration Hydromorphone HCl 0.5 mg 08/15/17 18:11 08/15/17 18:17 Dilaudid IVPUSH 08/15/17 18:12 0.5 mg ONETIME ONE Administration Iopamidol 100 ml 08/15/17 19:53 08/15/17 20:14 Isovue-300 (61%) IVPUSH 08/15/17 19:54 100 ml ONETIME ONE Administration Ondansetron HCl 4 mg 08/15/17 17:43 08/15/17 17:49 Zofran IVPUSH 08/15/17 17:44 4 mg ONETIME ONE Administration - Re-Assessments/Exams Free Text/Narrative Re-Assessment/Exam: IV established with NS and Zofran 4 mg IVP. Initial labs and studies include: CBC, CMP, blood cultures 2, left gastric, lipase, UA, CRP, and chest x-ray with abdominal series. X-ray of the chest revealed no acute findings. X-ray of the abdomen revealed large loop of distended bowel with multiple airfluid levels. X-rays reveiwed with Dr. Andrew Grover. NG tube ordered. [address] Griffin, IV established with NS and Zofran 4 mg IVP. Initial labs and studies include: CBC, CMP, blood cultures 2, left gastric, lipase, UA, CRP, and chest x-ray with abdominal series. X-ray of the chest revealed no acute findings. X-ray of the abdomen revealed large loop of distended bowel with multiple airfluid levels. X-rays reveiwed with Dr. Andrew Grover. NG tube ordered. [address] Griffin. Agrees with plan. Requests CT of the abdomen and pelvis with contrast. Oral contrast can be administered through the NG tube and clamped. Lactic acid is pending. Otherwise other lab results were discussed with him. Coag studies ordered as well. Lactic Acid 1.3. Per nursing staff patient has had approximately 1500mls of stomach contents suctioned out. CT abdomen and pelvis Technique: Multiple axial sections were obtained from above the dome of the diaphragm inferiorly through the pubic symphysis. Intravenous contrast was utilized. Oral contrast was given which remains mostly within the stomach. Delayed images were also obtained through the bladder. Comparison: Prior CT abdomen and pelvis exam of 08/12/13. Findings: Visualized lung bases shows nothing acute. Liver shows no focal abnormality. Spleen appears within normal limits. Adrenal glands show no nodule. Kidneys show symmetric contrast enhancement without hydronephrosis or mass. Left kidney is slightly smaller than the right side which is a stable finding. Pancreas shows no discrete abnormality. Aorta shows atherosclerotic change which continues into the iliac vessels. No aneurysm is seen. No retroperitoneal adenopathy is noted. Dilated fluid-filled small bowel loops are seen. Left inguinal hernia is noted. This is most likely the etiology for the small bowel obstruction No pelvic mass or adenopathy is noted. Delayed images shows contrast within the distal ureters and bladder. No free fluid is seen. Free air felt to be present within the right upper abdomen next to the liver. Impression: 1. Dilated small bowel loops with left inguinal hernia. Left inguinal hernia is most likely the etiology for the small bowel obstruction. 2. Possible small amount of free air within the right upper abdomen next to the liver. 3. Other incidental findings. Diagnostic code #5 08/15/17 20:48 Dr. Griffin has spoken with the patient and family. Reviewed the CT study. Do to the patient's age and comorbidities. He is at increased risk of of developing post surgical complications thus request transfer to [facility]. [address] Dr. Griffin has spoke with Dr. Dennis aviation program manager General Surgeon at [facility]. Dr. Dennis has accepted the patient. Requests patient be transported to the [facility] for evaluation prior to admission. Transfer paperwork has been completed. Ambulance has been notified. Departure - Departure Time of Disposition: 21:24 Disposition: DC/Tfer to Acute Hospital 02 Condition: Fair Clinical Impression: Left inguinal hernia - Discharge Information Referrals: Edy Asencio MD [Primary Care Provider] - Forms: ED Department Discharge - My Orders Last 24 Hours: My Active Orders 08/15/17 17:42 Peripheral IV Care [RC] . DIRECTED Abdomen Series w Chest 1V [CR] Stat Sodium Chloride 0.9% [Saline Flush] 10 ml FLUSH ASDIRECTED PRN Peripheral IV Insertion Adult [OM.PC] Routine 08/15/17 17:43 Blood Culture x2 Reflex Set [OM.PC] Stat 08/15/17 17:45 Sodium Chloride 0.9% [Normal Saline] 1,000 ml IV ASDIRECTED 08/15/17 18:08 CULTURE BLOOD [BC] Stat 08/15/17 18:10 NG [Nasogastric Orogastric Tube Insertion] [OM.PC] Routine 08/15/17 18:15 CULTURE BLOOD [BC] Stat 08/15/17 19:53 Sodium Chloride 0.9% [Saline Flush] 10 ml FLUSH ONETIME PRN - Assessment/Plan Last 24 Hours: My Active Orders 08/15/17 17:42 Peripheral IV Care [RC] . DIRECTED Abdomen Series w Chest 1V [CR] Stat Sodium Chloride 0.9% [Saline Flush] 10 ml FLUSH ASDIRECTED PRN Peripheral IV Insertion Adult [OM.PC] Routine 08/15/17 17:43 Blood Culture x2 Reflex Set [OM.PC] Stat 08/15/17 17:45 Sodium Chloride 0.9% [Normal Saline] 1,000 ml IV ASDIRECTED 08/15/17 18:08 CULTURE BLOOD [BC] Stat 08/15/17 18:10 NG [Nasogastric Orogastric Tube Insertion] [OM.PC] Routine 08/15/17 18:15 CULTURE BLOOD [BC] Stat 08/15/17 19:53 Sodium Chloride 0.9% [Saline Flush] 10 ml FLUSH ONETIME PRN
[2017-08-15] MEDS ORDERED: Diatrizoate Meglumine/Diatrizoate Sodium 37% 120 ML Bottle PO ONE (19:53)
[2017-08-15] MEDS ORDERED: Iopamidol 612 MG/ML 100 ML Bottle IVPUSH ONE (19:53)
--- NOTE | 2017-08-15 20:45 | CT ---
CT abdomen and pelvis Technique: Multiple axial sections were obtained from above the dome of the diaphragm inferiorly through the pubic symphysis. Intravenous contrast was utilized. Oral contrast was given which remains mostly within the stomach. Delayed images were also obtained through the bladder. Comparison: Prior CT abdomen and pelvis exam of 08/12/13. Findings: Visualized lung bases shows nothing acute. Liver shows no focal abnormality. Spleen appears within normal limits. Adrenal glands show no nodule. Kidneys show symmetric contrast enhancement without hydronephrosis or mass. Left kidney is slightly smaller than the right side which is a stable finding. Pancreas shows no discrete abnormality. Aorta shows atherosclerotic change which continues into the iliac vessels. No aneurysm is seen. No retroperitoneal adenopathy is noted. Dilated fluid-filled small bowel loops are seen. Left inguinal hernia is noted. This is most likely the etiology for the small bowel obstruction No pelvic mass or adenopathy is noted. Delayed images shows contrast within the distal ureters and bladder. No free fluid is seen. Free air felt to be present within the right upper abdomen next to the liver. Impression: 1. Dilated small bowel loops with left inguinal hernia. Left inguinal hernia is most likely the etiology for the small bowel obstruction. 2. Possible small amount of free air within the right upper abdomen next to the liver. 3. Other incidental findings. Diagnostic code #5
--- NOTE | 2017-08-15 21:27 | PCM.CONS ---
H&P History of Present Illness - General Date of Service: 08/15/17 Admit Problem/Dx: nausea/emesis, abdominal pain Source of Information: Patient, Family History Limitations: Reports: No Limitations - History of Present Illness Initial Comments - Free Text/Narative: 77 yo male, h/o multiple medical problems, history of multiple prior surgeries for small bowel obstruction, presents with recurrent small bowel obstruction. The patient now presents with a 3-day history of progressively worsening abdominal pain, distention, nausea and emesis. The symptoms are similar to prior episodes of SBO. He presented to the ED, where an X-ray demonstrated multiple distended loops of small bowel. The patient also had a Na of 126. I was called to further evaluate, and I recommended a CT scan for further evaluation. The patient has since had an NG tube placed. Since NG placement, the patient reports improvement in symptoms with resolution of abdominal pain, nausea, and emesis. He reports having a known LEFT inguinal hernia, which was evaluated by Dr. Tyler, but that repair was never scheduled, because the patient wanted to check with the ED. He notes enlarging of the LEFT inguinal hernia since May 2017. In 2013, the patient required laparotomy and resection of a segment of jejunum. He had a post-op course complicated by cardiac arrythmias and hyponatremia. Then in May 2016, the patient presented with similar symptoms and required transfer to [facility], where he underwent laparotomy and possible resection of bowel (notes unavailable). Lower Abdomen Pain Score (Numeric/FACES): 8 - Related Data Allergies/Adverse Reactions: Allergies Allergy/AdvReac Type Severity Reaction Status Date / Time No Known Allergies Allergy Verified 08/15/17 17:37 Home Medications: Home Meds Diltiazem [Cardizem CD] 180 mg PO DAILY #30 cap.cd 08/23/13 [Rx] Finasteride [Proscar] 5 mg PO DAILY 11/30/14 [History] Metoprolol Tartrate [Lopressor] 25 mg PO DAILY 11/30/14 [History] Multivitamins/Minerals/Lutein [Certavite SR with Lutein] 1 tab PO DAILY [History] Ranitidine HCl 150 mg PO BID 11/30/14 [History] Rosuvastatin [Crestor] 20 mg PO BEDTIME 11/30/14 [History] Pantoprazole [ProTONIX] 40 mg PO BID #30 tab.cr 12/01/14 [Rx] Aspirin 81 mg PO BEDTIME 09/09/15 [History] Albuterol/Ipratropium [Combivent] 2 puff INH Q4H PRN 08/15/17 [History] Cholecalciferol (Vitamin D3) [Vitamin D3] 2,000 unit PO DAILY 08/15/17 [History] Denosumab [Prolia] 1 ml SUBCUT ASDIRECTED 08/15/17 [History] Sucralfate [Carafate] 1 gm PO DAILY 08/15/17 [History] Past Medical History HEENT History: Reports: Cataract, Impaired Vision, Macular Degeneration Other HEENT History: wears glasses Cardiovascular History: Reports: Afib (Hx), CAD, High Cholesterol, Hypertension , NV, PTCA, SOB on Exertion (pt states uses inhaler only when needed-last time was on Saturday), Stents, Other (See Below) Other Cardiovascular History: hyponatremia Respiratory History: Reports: Asthma, COPD (on inhaler therapy. Not requiring home O2.), SOB (INCREASING, pt states with exertion, denies with flight of stairs) Gastrointestinal History: Reports: Diverticulosis, Gastritis, GERD, PUD ( Diagnosed about 8 yrs ago and was treated for H.pylori.), Other (See Below) Other Gastrointestinal History: duodenitis, ulcers, esophogeal stricture Genitourinary History: Reports: BPH, Prostate Disorder Musculoskeletal History: Reports: Osteoporosis Other Musculoskeletal History: Compression Fx x 3 Thoracic Neurological History: Reports: None Psychiatric History: Reports: None Endocrine/Metabolic History: Reports: None - Past Surgical History Head Surgeries/Procedures: Reports: None HEENT Surgical History: Reports: Cataract Surgery Cardiovascular Surgical History: Reports: Coronary Artery Stent Respiratory Surgical History: Reports: None GI Surgical History: Reports: Colonoscopy, EGD, Small Bowel, Other (See Below) ( laparotomy) Female Surgical History: Reports: None Male Surgical History: Reports: None Endocrine Surgical History: Reports: None Neurological Surgical History: Reports: None Musculoskeletal Surgical History: Reports: None Oncologic Surgical History: Reports: None Dermatological Surgical History: Reports: None Social & Family History - Tobacco Use Smoking Status *Q: Current Every Day Smoker Years of Tobacco use: 61 Packs/Tins Daily: 1 - Caffeine Use Caffeine Use: Reports: None, Soda - Recreational Drug Use Recreational Drug Use: No - Living Situation & Occupation Living situation: Reports: Occupation: Employed H&P Review of Systems - Review of Systems: Review Of Systems: ROS reveals no pertinent complaints other than HPI. Exam - Exam Exam: See Below - Vital Signs Vital Signs: Last Vital Signs Temp 36.3 C 08/15/17 17:36 Pulse 63 08/15/17 17:36 Resp 16 08/15/17 17:36 BP 133/75 08/15/17 17:36 Pulse Ox 98 08/15/17 17:36 Weight: 58.967 kg - Exam General: Alert, Oriented HEENT: Other (NG tube in place, draining bilious fluid.) GI/Abdominal Exam: Distended, Tender (mildly tender in the LLQ. No peritonitis.) , Other (central midline hernia, tender. Large LEFT inguinal hernia, non- reducible. mildly tender.) - Patient Data Lab Results Last 24 hrs: Laboratory Results - last 24 hr 08/15/17 08/15/17 08/15/17 Range/Units 17:30 17:30 17:30 WBC 7.92 (4.23-9.07) K/mm3 RBC 4.34 L (4.63-6.08) M/mm3 Hgb 13.9 (13.7-17.5) gm/L Hct 40.6 (40.1-51.0) % MCV 93.5 H (79.0-92.2) fl MCH 32.0 (25.7-32.2) pg MCHC 34.2 (32.2-35.5) g/dl RDW Std Deviation 42.0 (35.1-43.9) fL Plt Count 283 (163-337) K/mm3 MPV 9.1 L (9.4-12.3) fl Neutrophils % (Manual) 75 H (40-60) % Band Neutrophils % 2 (0-10) % Lymphocytes % (Manual) 16 L (20-40) % Atypical Lymphs % 0 % Monocytes % (Manual) 7 (2-10) % Eosinophils % (Manual) 0 L (0.8-7.0) % Basophils % (Manual) 0 L (0.2-1.2) Platelet Estimate Adequate RBC Morph Comment Normal PT 10.4 (9.5-12.1) SECONDS INR 0.95 APTT 27 (24-31) SECONDS Sodium 126 L (136-145) mEq/L Potassium 4.0 (3.5-5.1) mEq/L Chloride 92 L (98-107) mEq/L Carbon Dioxide 23 (21-32) mEq/L Anion Gap 15.0 (5-15) BUN 11 (7-18) mg/dL Creatinine 0.8 (0.7-1.3) mg/dL Est Cr Clr Drug Dosing 59.72 mL/min Estimated GFR (MDRD) > 60 (>60) mL/min BUN/Creatinine Ratio 13.8 L (14-18) Glucose 129 H (83-115) mg/dL Lactic Acid (0.4-2.0) mmol/L Calcium 9.5 (8.5-10.1) mg/dL Total Bilirubin 0.8 (0.2-1.0) mg/dL AST 20 (15-37) U/L ALT 21 (16-63) U/L Alkaline Phosphatase 61 (46-116) U/L C-Reactive Protein 1.2 H* (<1.0) mg/dL Total Protein 7.6 (6.4-8.2) g/dl Albumin 4.1 (3.4-5.0) g/dl Globulin 3.5 gm/dL Albumin/Globulin Ratio 1.2 (1-2) Lipase 135 (73-393) U/L 08/15/17 Range/Units 18:08 WBC (4.23-9.07) K/mm3 RBC (4.63-6.08) M/mm3 Hgb (13.7-17.5) gm/L Hct (40.1-51.0) % MCV (79.0-92.2) fl MCH (25.7-32.2) pg MCHC (32.2-35.5) g/dl RDW Std Deviation (35.1-43.9) fL Plt Count (163-337) K/mm3 MPV (9.4-12.3) fl Neutrophils % (Manual) (40-60) % Band Neutrophils % (0-10) % Lymphocytes % (Manual) (20-40) % Atypical Lymphs % % Monocytes % (Manual) (2-10) % Eosinophils % (Manual) (0.8-7.0) % Basophils % (Manual) (0.2-1.2) Platelet Estimate RBC Morph Comment PT (9.5-12.1) SECONDS INR APTT (24-31) SECONDS Sodium (136-145) mEq/L Potassium (3.5-5.1) mEq/L Chloride (98-107) mEq/L Carbon Dioxide (21-32) mEq/L Anion Gap (5-15) BUN (7-18) mg/dL Creatinine (0.7-1.3) mg/dL Est Cr Clr Drug Dosing mL/min Estimated GFR (MDRD) (>60) mL/min BUN/Creatinine Ratio (14-18) Glucose (83-115) mg/dL Lactic Acid 1.3 (0.4-2.0) mmol/L Calcium (8.5-10.1) mg/dL Total Bilirubin (0.2-1.0) mg/dL AST (15-37) U/L ALT (16-63) U/L Alkaline Phosphatase (46-116) U/L C-Reactive Protein (<1.0) mg/dL Total Protein (6.4-8.2) g/dl Albumin (3.4-5.0) g/dl Globulin gm/dL Albumin/Globulin Ratio (1-2) Lipase (73-393) U/L Result Diagrams: 08/15/17 17:30 08/15/17 21:10 Imaging Impressions Last 24 hrs: CT Abd/Pelvis with PO/IV contrast: Dilated loops of bowel. Consult PN Assessment/Plan Procedures: Procedures AIRWAY INHALATION TREATMENT (08/13/13) ASSAY OF LIPASE (05/23/16) ASSAY OF MAGNESIUM (05/23/16) ASSAY OF PHOSPHORUS (08/13/13) ASSAY OF SERUM ALBUMIN (08/13/13) ASSAY OF TROPONIN QUANT (05/23/16) ASSAY OF URINE CHLORIDE (08/13/13) ASSAY OF URINE OSMOLALITY (08/13/13) ASSAY OF URINE POTASSIUM (08/13/13) ASSAY OF URINE SODIUM (08/13/13) ASSAY THYROID STIM HORMONE (08/13/13) BLOOD CULTURE FOR BACTERIA (08/13/13) BLOOD TYPING SEROLOGIC ABO (08/13/13) BLOOD TYPING SEROLOGIC RH(D) (08/13/13) C DIFF AMPLIFIED PROBE (08/13/13) C-REACTIVE PROTEIN (05/23/16) CHEST X-RAY 1 VIEW FRONTAL (05/23/16) CHEST X-RAY 2VW FRONTAL&LATL (08/13/13) COMPLETE CBC AUTOMATED (08/13/13) COMPLETE CBC W/AUTO DIFF WBC (05/23/16) COMPREHEN METABOLIC PANEL (05/23/16) CREATINE MB FRACTION (05/23/16) CT ABD & PELVIS W/O CONTRAST (08/13/13) CT THORAX W/O DYE (08/13/13) CULTR BACTERIA EXCEPT BLOOD (08/13/13) DXA BONE DENSITY AXIAL (09/27/16) EGD BIOPSY SINGLE/MULTIPLE (09/12/15) EGD DIAGNOSTIC BRUSH WASH (01/02/16) ELECTROCARDIOGRAM TRACING (05/23/16) ELECTROLYTE PANEL (12/01/14) EMERGENCY DEPT VISIT (05/23/16) EMERGENCY DEPT VISIT (08/10/13) EVALUATE PT USE OF INHALER (08/13/13) GAIT TRAINING THERAPY (08/13/13) GLUCOSE BLOOD TEST (08/13/13) HYDRATE IV INFUSION ADD-ON (05/23/16) MEASURE BLOOD OXYGEN LEVEL (08/13/13) MEASURE BLOOD OXYGEN LEVEL (08/13/13) MEASURE BLOOD OXYGEN LEVEL (08/13/13) METABOLIC PANEL TOTAL CA (09/12/15) PROTHROMBIN TIME (05/23/16) PT EVALUATION (08/13/13) RBC ANTIBODY SCREEN (08/13/13) RBC SED RATE AUTOMATED (08/13/13) ROUTINE VENIPUNCTURE (05/23/16) SMEAR GRAM STAIN (08/13/13) THER/PROPH/DIAG INJ IV PUSH (05/23/16) THERAPEUTIC ACTIVITIES (08/13/13) THERAPEUTIC EXERCISES (08/13/13) THROMBOPLASTIN TIME PARTIAL (05/23/16) TISSUE EXAM BY PATHOLOGIST (12/01/14) TISSUE EXAM BY PATHOLOGIST (08/13/13) TTE W/DOPPLER COMPLETE (08/13/13) TX/PRO/DX INJ NEW DRUG ADDON (05/23/16) UPR/LXTR ART STDY 3+ LVLS (11/19/14) URINALYSIS AUTO W/SCOPE (05/23/16) URINE BACTERIA CULTURE (08/13/13) VANOMYCIN DNA AMP PROBE (08/13/13) X-RAY EXAM OF ABDOMEN (05/23/16) X-RAY EXAM OF ABDOMEN (08/10/13) X-RAY EXAM OF HIP (08/13/13) (1) Small bowel obstruction SNOMED Code(s): 533266192 Code(s): K56.69 - OTHER INTESTINAL OBSTRUCTION * DO NOT USE * Current Visit : No (2) Inguinal hernia of left side with obstruction SNOMED Code(s): 307979705 Code(s): K40.30 - UNIL INGUINAL HERNIA, W OBST, W/O GANGR, NOT SPCF RECUR Current Visit: Yes Problem List Initiated/Reviewed/Updated: Yes Plan: 77 yo male, h/o multiple medical problems, including prior NV s/p PCI with coronary stents, HTN, COPD, chronic tobacco use and active smoker, h/o multiple prior abdominal operations and bowel resections for SBO, presenting with recurrent SBO with a large LEFT inguinal hernia. No peritonitis, afebrile, and WBC/lactate within normal limits. Concern that this inguinal hernia is the source of the patient's SBO, although it may also be adhesive disease. The CT scan images were reviewed. There appears to be two abdominal wall hernias - one at the central ventral midline aspect with a loop of transverse colon inside. There appears to be no colonic obstruction. There is also a large LEFT inguinal hernia, which appears to contain a loop of small bowel. It is unclear if there if there is a transition point here. There are multiple loops of dilated small bowel. - Patient may require surgical intervention to repair the LEFT inguinal hernia and potential laparotomy to treat adhesive small bowel disease. - Given the patient's multiple medical problems and multiple prior abdominal surgeries, he is at high risk for perioperative complications with potential for prolonged critical care needs. He would best be cared for at a hospital with a higher level of care. The patient preferred going to [facility], since he had been treated there previously. - The case was discussed by phone with [facility] [id number] Dr. eDnnis, who accepted the transfer. The patient will be transferred by ambulance to the [facility] ER. Patient also with hyponatremia with a Na of 126, although patient appears to be asymptomatic. - While the ambulance is mobilized, I recommended that a repeat Na is obtained ( last one was 3 hours ago) to ensure that correction of Na isn't too quick. He is currently receiving NS at 125 cc/hr. Given the unknown duration of hyponatremia, it is best to assume that this has been chronic and to correct slowly. Ever Reinoso M.D., F.A.C.S. General Surgery Pager: [phone] Requesting Provider: Rashel Cisneros
--- NOTE | 2017-08-16 07:28 | CR ---
Abdominal series: Supine and upright views of the abdomen were obtained as well as frontal view of the chest. Comparison: Prior chest x-ray of 05/23/16 and abdominal x-ray of 05/23/16. Heart size is normal. Tortuous thoracic aorta is seen. Nodule is identified within the left lung base which is not definitely seen on prior chest x-ray. Lungs otherwise are clear. Small amount of free air is suggested beneath the left hemidiaphragm. Gas dilated bowel is seen mostly being small bowel. Bony structures are unremarkable. Vascular calcification is seen. Impression: 1. Nodule within the left lung base not seen on prior chest x-ray. Nonemergent noncontrast chest CT is recommended to further evaluate. 2. Small amount of free air as well as dilated gas-filled small bowel compatible with bowel obstruction. Diagnostic code #5
== END 2017-08-15 21:57 ==
LOC: JD.ED 17:19
DX: K40.90 Unilateral inguinal hernia, without obstruction or gangrene, not specified as recurrent (principal); I10 Essential (primary) hypertension; E78.00 Pure hypercholesterolemia, unspecified; I25.2 Old myocardial infarction; J44.9 Chronic obstructive pulmonary disease, unspecified; K21.9 Gastro-esophageal reflux disease without esophagitis; Z79.82 Long term (current) use of aspirin; Z79.899 Other long term (current) drug therapy
CPT/HCPCS: 36415; 74022; 74177; 80048; 80053; 81001; 83605; 83690; 85007; 85027; 85610; 85730; 86140; 87040; 96361; 96374; 96375; 99285; J1170; J2405; J7040; J7050; Q9963; Q9967; 99284

== ENCOUNTER 2018-07-23 12:07 | Inpatient (IN) | payer MEDICARE, OTHER ==
--- NOTE | 2018-07-23 12:42 | EDM.PDOC ---
ED HPI GENERAL MEDICAL PROBLEM - General Chief Complaint: Abdominal Pain Stated Complaint: ABD PAIN AND VOMITING Time Seen by Provider: 07/23/18 12:42 Source of Information: Reports: Patient History Limitations: Reports: No Limitations - History of Present Illness INITIAL COMMENTS - FREE TEXT/NARRATIVE: 78-year-old male presents to the ED with recurrent nausea and vomiting since Saturday evening July 21. Patient states is associated with diffuse abdominal cramping pain. He has experienced at least 3 small bowel obstructions in the past. Current emesis has a dark brown color to it suggesting feculent component to the emesis. He did have a bowel movement yesterday and he still believes he is passing a little flatus even this morning. No bowel movement today. He has taken his medications yesterday morning and today and believes they stay down. She has had previous left inguinal hernia raphe last year. Prior to this he's had at least 8 inches of his small bowel resected he was to the OR in 2014 for release of adhesions and repair of small bowel obstruction of note he had no previous abdominal surgery prior to that bowel obstruction. He has been hospitalized twice since for release of small bowel obstruction. Last time he got throat with nasogastric tube and conservative management. He has a large ventral hernia which he states does not bother him. Pain is constant rate is 3 or 4 out of 10 with a mild colicky component. Pain does not seem to radiate through to his back. Not making hardly any urine. Onset: Sudden Onset Date: 07/21/18 Onset Time: 19:00 Duration: Hour(s): Location: Reports: Abdomen (Diffuse periumbilical and infraumbilical pain with nausea and vomiting becoming more feculent.) Quality: Reports: Same as Previous Episode Severity: Moderate (Rates his pain is 4 out of 10.) Improves with: Reports: None Worsens with: Reports: Other Context: Reports: Other (Previous small bowel obstructions.). Denies: Activity (Worsens if he tries to eat or drink.), Exercise, Lifting, Sick Contact, Trauma Associated Symptoms: Reports: Cough, Loss of Appetite, Malaise, Nausea/Vomiting (Initially bilious material now more feculent), Shortness of Breath, Weakness. 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 (see below) (Did take his normal medications this morning and yesterday morning.) Abdomen Pain Score (Numeric/FACES): 4 - Related Data Allergies Allergy/AdvReac Type Severity Reaction Status Date / Time No Known Allergies Allergy Verified 08/15/17 17:37 Home Meds: Home Meds Diltiazem [Cardizem CD] 180 mg PO DAILY #30 cap.cd 08/23/13 [Rx] Finasteride [Proscar] 5 mg PO DAILY 11/30/14 [History] Metoprolol Tartrate [Lopressor] 25 mg PO DAILY 11/30/14 [History] Multivitamins/Minerals/Lutein [Certavite SR with Lutein] 1 tab PO DAILY [History] Rosuvastatin [Crestor] 20 mg PO BEDTIME 11/30/14 [History] raNITIdine HCl [Ranitidine HCl] 150 mg PO BID 11/30/14 [History] Pantoprazole [ProTONIX] 40 mg PO BID #30 tab.cr 12/01/14 [Rx] Aspirin 81 mg PO BEDTIME 09/09/15 [History] Albuterol/Ipratropium [Combivent] 2 puff INH Q4H PRN 08/15/17 [History] Cholecalciferol (Vitamin D3) [Vitamin D3] 2,000 unit PO DAILY 08/15/17 [History] Denosumab [Prolia] 1 ml SUBCUT ASDIRECTED 08/15/17 [History] Sucralfate [Carafate] 1 gm PO DAILY 08/15/17 [History] Past Medical History HEENT History: Reports: Cataract, Impaired Vision, Macular Degeneration Other HEENT History: wears glasses Cardiovascular History: Reports: Afib, CAD, High Cholesterol, Hypertension, MA, PTCA, SOB on Exertion, Stents, Other (See Below) Other Cardiovascular History: hyponatremia Respiratory History: Reports: Asthma, COPD, SOB Gastrointestinal History: Reports: Diverticulosis, Gastritis, GERD, PUD, Other ( See Below) Other Gastrointestinal History: duodenitis, ulcers, esophogeal stricture Genitourinary History: Reports: BPH, Prostate Disorder Musculoskeletal History: Reports: Osteoporosis Other Musculoskeletal History: Compression Fx x 3 Thoracic Neurological History: Reports: None Psychiatric History: Reports: None Endocrine/Metabolic History: Reports: None - Past Surgical History Head Surgeries/Procedures: Reports: None HEENT Surgical History: Reports: Cataract Surgery Cardiovascular Surgical History: Reports: Coronary Artery Stent Respiratory Surgical History: Reports: None GI Surgical History: Reports: Colonoscopy, EGD, Small Bowel, Other (See Below) Male Surgical History: Reports: None Endocrine Surgical History: Reports: None Neurological Surgical History: Reports: None Musculoskeletal Surgical History: Reports: None Oncologic Surgical History: Reports: None Dermatological Surgical History: Reports: None Social & Family History - Tobacco Use Smoking Status *Q: Current Every Day Smoker Years of Tobacco use: 62 Packs/Tins Daily: 0.7 - Caffeine Use Caffeine Use: Reports: Coffee, Soda - Recreational Drug Use Recreational Drug Use: No - Living Situation & Occupation Living situation: Reports: Occupation: Employed ED ROS GENERAL - Review of Systems Review Of Systems: See Below Constitutional: Reports: Chills, Malaise, Weakness, Fatigue, Decreased Appetite. Denies: Fever (Feels chilled at times.) HEENT: Reports: Glasses, Hearing Loss Respiratory: Reports: Shortness of Breath (Due to), Wheezing (Chronic cough and occasional wheezing), Cough Cardiovascular: Reports: Blood Pressure Problem, Dyspnea on Exertion ( Chronically). Denies: Chest Pain ( COPD.), Claudication, Edema, Lightheadedness , Orthopnea (Chronic hypertension) Endocrine: Reports: Fatigue GI/Abdominal: Reports: Abdominal Pain (Constant midabdominal pain with), Decreased Appetite, Nausea (See history present illness), Vomiting (Feculent- like material at this time). Denies: Diarrhea : Reports: Frequency, Other (Has known BPH. Usually nocturia 2) Musculoskeletal: Reports: Back Pain, Joint Pain Skin: Reports: Bruising (Knees and hips and neck at times. Uses fairly easily.) , Other (Of note he has a dark purple birthmark under his right chin anterior neck zone 2.) Neurological: Reports: No Symptoms Psychiatric: Reports: No Symptoms Hematologic/Lymphatic: Reports: No Symptoms Immunologic: Reports: No Symptoms ED EXAM, GI/ABD - Physical Exam Exam: See Below Exam Limited By: No Limitations General Appearance: Alert, WD/WN, Mild Distress Eyes: Bilateral: Normal Appearance (No scleral icterus.) Throat/Mouth: Normal Inspection, Normal Lips, Normal Oropharynx, Other Head: Atraumatic, Normocephalic (Tongue remains moist.) Neck: Normal Inspection, Supple, Non-Tender, Full Range of Motion. No: Lymphadenopathy (L), Lymphadenopathy (R) Respiratory/Chest: Respiratory Distress, Decreased Breath Sounds (Mild tachypnea.), Wheezing ( Decreased breath sounds lower 25% lung osorio. expiratory wheeze. ) Cardiovascular: Regular Rate, Rhythm, No Edema, No Gallop, No Murmur, No Rub. No: Normal Peripheral Pulses GI/Abdominal Exam: Distended, Abnormal Bowel Sounds (Bowel sounds are mildly hyperactive in all 4 quadrants), Other (Has a large ventral hernia which is easily reduced. Doesn't seem to be tender in any fashion are formed. His scar is midline of the lower abdomen and left lower quadrant of the abdomen.). No: No Mass, Pelvis Stable, Guarding, Rigid (Diffusely tympanitic to percussion.), Rebound, Tender (Male) Exam: No Hernia (Evidence of left inguinal hernia repair) Back Exam: Normal Inspection, Full Range of Motion. No: CVA Tenderness (L), CVA Tenderness (R) Extremities: Normal Inspection, Normal Range of Motion, Non-Tender Neurological: Alert, Oriented, CN II-XII Intact, Normal Cognition Psychiatric: Normal Affect, Normal Mood Skin Exam: Warm, Dry, Intact, Normal Color, No Rash EKG INTERPRETATION EKG Date: 07/23/18 Time: 12:58 Rhythm: NSR Rate (Beats/Min): 63 Alvin: Normal P-Wave: Present QRS: Other (Borderline criteria for left ventricular hypertrophy pattern. Initial poor R-wave progression. 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 There is decreased voltage in the limb leads. COPD pattern) ST-T: Normal QT: Normal EKG Interpretation Comments: Abnormal ECG Course - Vital Signs Last Recorded V/S: Last Vital Signs Temp 36.9 C 07/23/18 16:34 Pulse 71 07/23/18 16:35 Resp 18 07/23/18 16:35 BP 110/88 07/23/18 16:35 Pulse Ox 95 07/23/18 16:35 - Orders/Labs/Meds Orders: Active Orders 24 hr Category Date Time Status EKG Documentation Completion [RC] STAT Care 07/23/18 12:48 Active Nasogastric Tube Management [Gastrointestinal Tube Mgmt Care 07/23/18 13:48 Active ] [RC] ASDIRECTED Notify Provider Consults [RC] ASDIRECTED Care 07/23/18 15:14 Active Consult to Physician [CONS] Stat Cons 07/23/18 15:13 Active Dextrose 5%-0.9% NaCl [Dextrose 5%-Normal Saline] 1,000 Med 07/23/18 13:00 Active ml IV ASDIRECTED Sodium Chloride 0.9% [Normal Saline] 1,000 ml Med 07/23/18 15:30 Active IV ASDIRECTED Medication Orders Dextrose/Sodium Chloride (Dextrose 5%-Normal Saline) 1,000 mls @ 500 mls/hr IV ASDIRECTED ROXANNA Last Admin: 07/23/18 12:56 Dose: 500 mls/hr Sodium Chloride (Normal Saline) 1,000 mls @ 150 mls/hr IV ASDIRECTED ROXANNA Cefepime HCl 2 gm/ Premix 50 mls @ 100 mls/hr IV ONETIME ONE Stop: 07/23/18 17:29 Metronidazole 500 mg/ Premix 100 mls @ 100 mls/hr IV ONETIME ONE Stop: 07/23/18 17:59 Labs: Laboratory Tests 07/23/18 07/23/18 07/23/18 Range/Units 12:45 12:45 12:45 WBC 9.69 H (4.23-9.07) K/mm3 RBC 4.57 L (4.63-6.08) M/mm3 Hgb 14.7 (13.7-17.5) gm/L Hct 42.4 (40.1-51.0) % MCV 92.8 H (79.0-92.2) fl MCH 32.2 (25.7-32.2) pg MCHC 34.7 (32.2-35.5) g/dl RDW Std Deviation 42.9 (35.1-43.9) fL Plt Count 284 (163-337) K/mm3 MPV 8.8 L (9.4-12.3) fl Neutrophils % (Manual) 88 H (40-60) % Band Neutrophils % 0 (0-10) % Lymphocytes % (Manual) 4 L (20-40) % Atypical Lymphs % 0 % Monocytes % (Manual) 8 (2-10) % Eosinophils % (Manual) 0 L (0.8-7.0) % Basophils % (Manual) 0 L (0.2-1.2) Platelet Estimate Adequate RBC Morph Comment Normal PT 10.9 (9.5-12.1) SECONDS INR 1.00 Sodium 122 L (136-145) mEq/L Potassium 3.9 (3.5-5.1) mEq/L Chloride 86 L (98-107) mEq/L Carbon Dioxide 26 (21-32) mEq/L Anion Gap 13.9 (5-15) BUN 15 (7-18) mg/dL Creatinine 0.9 (0.7-1.3) mg/dL Est Cr Clr Drug Dosing 52.24 mL/min Estimated GFR (MDRD) > 60 (>60) mL/min BUN/Creatinine Ratio 16.7 (14-18) Glucose 127 H (83-115) mg/dL Lactic Acid (0.4-2.0) mmol/L Calcium 8.8 (8.5-10.1) mg/dL Magnesium 1.7 L (1.8-2.4) mg/dl Total Bilirubin 0.8 (0.2-1.0) mg/dL AST 22 (15-37) U/L ALT 22 (16-63) U/L Alkaline Phosphatase 74 (46-116) U/L Troponin I (0.00-0.056) ng/mL C-Reactive Protein 1.8 H* (<1.0) mg/dL NT-Pro-B Natriuret Pep (0-450) pg/mL Total Protein 7.4 (6.4-8.2) g/dl Albumin 3.8 (3.4-5.0) g/dl Globulin 3.6 gm/dL Albumin/Globulin Ratio 1.1 (1-2) 07/23/18 07/23/18 07/23/18 Range/Units 12:45 12:45 13:15 WBC (4.23-9.07) K/mm3 RBC (4.63-6.08) M/mm3 Hgb (13.7-17.5) gm/L Hct (40.1-51.0) % MCV (79.0-92.2) fl MCH (25.7-32.2) pg MCHC (32.2-35.5) g/dl RDW Std Deviation (35.1-43.9) fL Plt Count (163-337) K/mm3 MPV (9.4-12.3) fl Neutrophils % (Manual) (40-60) % Band Neutrophils % (0-10) % Lymphocytes % (Manual) (20-40) % Atypical Lymphs % % Monocytes % (Manual) (2-10) % Eosinophils % (Manual) (0.8-7.0) % Basophils % (Manual) (0.2-1.2) Platelet Estimate RBC Morph Comment PT (9.5-12.1) SECONDS INR Sodium (136-145) mEq/L Potassium (3.5-5.1) mEq/L Chloride (98-107) mEq/L Carbon Dioxide (21-32) mEq/L Anion Gap (5-15) BUN (7-18) mg/dL Creatinine (0.7-1.3) mg/dL Est Cr Clr Drug Dosing mL/min Estimated GFR (MDRD) (>60) mL/min BUN/Creatinine Ratio (14-18) Glucose (83-115) mg/dL Lactic Acid 3.3 H (0.4-2.0) mmol/L Calcium (8.5-10.1) mg/dL Magnesium (1.8-2.4) mg/dl Total Bilirubin (0.2-1.0) mg/dL AST (15-37) U/L ALT (16-63) U/L Alkaline Phosphatase (46-116) U/L Troponin I 0.023 (0.00-0.056) ng/mL C-Reactive Protein (<1.0) mg/dL NT-Pro-B Natriuret Pep 1517 H (0-450) pg/mL Total Protein (6.4-8.2) g/dl Albumin (3.4-5.0) g/dl Globulin gm/dL Albumin/Globulin Ratio (1-2) Meds: Medications Generic Name Dose Route Start Last Admin Trade Name Freq PRN Reason Stop Dose Admin Dextrose/Sodium Chloride 1,000 mls @ 500 mls/hr 07/23/18 13:00 07/23/18 12:56 Dextrose 5%-Normal Saline IV 500 mls/hr ASDIRECTED ROXANNA Administration Sodium Chloride 1,000 mls @ 150 mls/hr 07/23/18 15:30 Normal Saline IV ASDIRECTED ROXANNA Cefepime HCl 2 gm/ Premix 50 mls @ 100 mls/hr 07/23/18 17:00 IV 07/23/18 17:29 ONETIME ONE Metronidazole 500 mg/ Premix 100 mls @ 100 mls/hr 07/23/18 17:00 IV 07/23/18 17:59 ONETIME ONE Discontinued Medications Generic Name Dose Route Start Last Admin Trade Name Eileen PRN Reason Stop Dose Admin Benzocaine Confirm 07/23/18 14:13 07/23/18 14:39 Hurricaine 20% [place] Administered 07/23/18 14:14 2 ml Dose Administration 59.2 ml .ROUTE .STK-MED ONE Hydromorphone HCl 0.5 mg 07/23/18 13:11 07/23/18 13:38 Dilaudid IVPUSH 07/23/18 13:12 0.5 mg ONETIME ONE Administration Hydromorphone HCl 0.5 mg 07/23/18 15:14 07/23/18 15:56 Dilaudid IVPUSH 07/23/18 15:15 Not Given ONETIME ONE Lidocaine HCl 10 ml 07/23/18 13:48 07/23/18 14:40 Xylocaine 2% Jelly MUCMEM 07/23/18 13:49 Not Given ONETIME ONE Lidocaine HCl 10 ml 07/23/18 13:48 07/23/18 14:40 Xylocaine 2% Jelly MUCMEM 07/23/18 13:49 10 ml ONETIME ONE Administration Metoclopramide HCl 7.5 mg 07/23/18 13:11 07/23/18 13:37 Reglan IVPUSH 07/23/18 13:12 7.5 mg ONETIME ONE Administration - Radiology Interpretation Free Text/Narrative:: 78-year-old male presents to the ED with diffuse abdominal pain which is constant with a colicky component primary felt just inferior to the umbilicus. It radiates slightly to the left lower quadrant. Associated with initially bilious emesis and then today it's more darker brown or feculent. Patient has had 3 bowel obstructions in the past. One was treated conservatively with nasogastric tube. He did have a normal bowel movement yesterday and he still believes he is passing flatus per rectum this morning. He did take all of his oral medication yesterday and again this morning and he believes they stayed down. Currently rates his abdominal pain is 4 out of 10 and is holding on to an emesis bag. Patient has had a history of recurrent bowel obstructions last time was treated conservatively with NG suction and did okay. Initial surgery was performed I believe for either an intussusception or internal hernia in [address] Page. He had a subsequent bowel obstruction after that that required release of adhesions. Last year he had a left inguinal hernia [place] repaired. He has a large ventral hernia which I'm able to reduce it does not cause him any pain at this time. Plan 1 view chest x-ray due to him being a COPD patient. One view of the abdomen to be done. IV will be D5 normal saline at 500 mils per hour. Given Reglan 7.5 mg IV for nausea relief and Dilaudid 0.5 g IV for pain relief. - Re-Assessments/Exams Free Text/Narrative Re-Assessment/Exam: 07/23/18 13:49 portable chest x-ray reveals [employer] markedly hyperinflated lung osorio with stigmatism of COPD. There are numerous blebs evident with very poor vascular pattern appreciated. Advanced COPD. Cardiac silhouette appears normal. KUB reveals multiple dilated loops of small bowel down to the pelvis. This is compatible with small bowel obstruction. Since he states he is passing some flatus this would be described as partial but it appears like it's going on to complete obstruction on the films. Plan nasogastric tube will be inserted to low intermittent suction. 07/23/18 14:39 Marked difficulties were encountered in trying to insert a nasogastric tube to nurses and myself both tried to place a 16-gauge nasogastric tube through the naris on both sides without any success. Decision made to try an oral gastric tube but this too failed. Third nurse was finally able to introduce it through the left naris into the stomach. The canisters already filled with green colored fluids. We'll proceed with CT of the abdomen to make sure that nothing is obviously incarcerated in his large ventral hernia. He will not be able to tolerate oral contrast agent for IV agent. 07/23/18 14:43 Labs are back showing a white count of 9.69. Differential is 88% neutrophils and no bands. Hemoglobin is 14.7 with hematocrit of 42.4. MCV is minimal minimally elevated at 92.8. Platelet count is 284,000. PT is 10.9 with an INR of 1.0. Sodium 122 by a very low. Potassium 3.9. Chloride is low at 86. Bicarbonate is 26. Anion gap is 13.9. BUN is 15. Creatinine is 0.9. GFR remains greater than 60. Glucose is 127. Lactic acid is elevated at 3.3. Calcium is 8.8. Magnesium is low at 1.7. Liver function is normal. C-reactive protein is 1.8. BNP is 1517. Total protein 7.4 with an albumin fraction of 3.8. Will ask --locum surgeon to see him in consultation. 07/23/18 15:29 Dr Beverly has seen him in consultation and believes he should be treated medically with nasogastric suction and improve his electrolytes. She will see him in follow-up in the morning. Case discussed with Dr. Bruno kindergarten instructional assistant hospitalist and the patient will be admitted to [facility] surgery on telemetry. We requires close monitoring of his I&O's. 07/23/18 15:48 CT of the abdomen and pelvis performed without contrast as the patient has intractable nausea and vomiting from small bowel obstruction visualized on plain films. Small portion of the visualized lung bases show nothing acute. Intrahepatic air is seen having the appearance of portal air is this area extends to the surface of the liver spleen is normal. Adrenal gland is slightly thickened on the left side which is felt to be incidental. Kidneys show no abnormal calcifications or hydronephrosis. Gallbladder contains no calcified gallstones. Diffuse atherosclerotic calcification is seen within the aorta and branch vessels. No retroperitoneal adenopathy is seen pancreas shows no discrete abnormality. Fat-containing anterior abdominal wall hernia is seen. Additional abdominal wall hernia is noted which contains a loop of small bowel. Small bowel appears dilated with what appears to be gas within portions of the bowel wall compatible with pneumatosis intestinalis. Distal small bowel loops show no dilatation. Etiology of this small bowel dilatation is not seen on this exam transition point appears to be close to an area of presumed surgery within the mid right abdomen. 07/23/18 16:45: Case discussed with after she got out of surgery and when she looked at the CT she identified significant pneumatosis intestinalis with air in the portal vein and in the liver. This means that potentially he could have necrotic intestine and be at high risk of perforation and . She therefore declined admission to our hospital and patient will be sent to [facility] under the care of Dr. Dennis kindergarten instructional assistant surgeon who has accepted care of this patient. He is to be taken to the ED first were Dr. Dennis will see him. The films have been sent by PACs to [facility] in [place]. In the meantime I will hang antibiotics Flagyl 500 mg IV and cefepime 2 g IV. Departure - Departure Time of Disposition: 17:09 Disposition: DC/Tfer to [facility] 02 Condition: Serious Clinical Impression: Small bowel obstruction, Hyponatremia, Lactic acidosis, Pneumatosis intestinalis of small intestine Intractable nausea and vomiting Qualifiers: Vomiting type: unspecified Qualified Code(s): R11.2 - Nausea with vomiting, unspecified Congestive heart failure Qualifiers: Heart failure type: unspecified Heart failure chronicity: acute on chronic Qualified Code(s): I50.9 - Heart failure, unspecified Ventral hernia Qualifiers: Obstruction and gangrene presence: without obstruction or gangrene Qualified Code(s): K43.9 - Ventral hernia without obstruction or gangrene - Discharge Information *PRESCRIPTION DRUG MONITORING PROGRAM REVIEWED*: Not Applicable *COPY OF PRESCRIPTION DRUG MONITORING REPORT IN PATIENT FAM: Not Applicable - My Orders Last 24 Hours: My Active Orders 07/23/18 12:48 EKG Documentation Completion [RC] STAT 07/23/18 13:00 Dextrose 5%-0.9% NaCl [Dextrose 5%-Normal Saline] 1,000 ml IV ASDIRECTED 07/23/18 13:48 Nasogastric Tube Management [Gastrointestinal Tube Mgmt] [RC] ASDIRECTED 07/23/18 15:13 Consult to Physician [CONS] Stat 07/23/18 15:14 Notify Provider Consults [RC] ASDIRECTED 07/23/18 15:30 Sodium Chloride 0.9% [Normal Saline] 1,000 ml IV ASDIRECTED - Assessment/Plan Last 24 Hours: My Active Orders 07/23/18 12:48 EKG Documentation Completion [RC] STAT 07/23/18 13:00 Dextrose 5%-0.9% NaCl [Dextrose 5%-Normal Saline] 1,000 ml IV ASDIRECTED 07/23/18 13:48 Nasogastric Tube Management [Gastrointestinal Tube Mgmt] [RC] ASDIRECTED 07/23/18 15:13 Consult to Physician [CONS] Stat 07/23/18 15:14 Notify Provider Consults [RC] ASDIRECTED 07/23/18 15:30 Sodium Chloride 0.9% [Normal Saline] 1,000 ml IV ASDIRECTED
[2018-07-23] MEDS ORDERED: Dextrose 5%-0.9% NaCl 1,000 ML IV SCH (13:00)
[2018-07-23] MEDS ORDERED: Metoclopramide 10 MG/2 ML SDV IVPUSH ONE (13:11)
[2018-07-23] MEDS ORDERED: HYDROmorphone 1 MG/ML Syringe IVPUSH ONE ×2 (13:11→15:14)
[2018-07-23] MEDS ORDERED: Lidocaine 2% Jelly 10 ML Urojet MUCMEM ONE ×2 (13:48)
[2018-07-23] MEDS ORDERED: Benzocaine 20% Oral Spray 59.2 ML Canister ONE (14:13)
--- NOTE | 2018-07-23 15:11 | CR ---
Chest: Frontal view of the chest was obtained. Comparison: Prior chest x-ray of 05/23/16. Heart size is normal. Mild tortuosity of the thoracic aorta is seen. Nodule is noted within the right upper lung which is stable and having the appearance of granuloma. Lungs show no acute parenchymal change. Slightly dilated air filled bowel are seen beneath the right hemidiaphragm compatible with small bowel obstruction as noted on recent abdominal x-ray. Impression: 1. Findings as noted above. Nothing acute is seen within the chest. Diagnostic code #2
--- NOTE | 2018-07-23 15:11 | CR ---
Abdomen: Supine view of the abdomen was obtained. Comparison: Prior CT abdomen and pelvis exam of 08/15/17. Diffuse gaseous dilatation is seen of small bowel. Findings have the appearance of small bowel obstruction. Surgical material is seen within the left inguinal region. Vascular calcification is noted. Bony structures are osteopenic. Impression: 1. Findings having the appearance of small bowel obstruction. Diagnostic code #3
[2018-07-23] MEDS ORDERED: Sodium Chloride 0.9% 1,000 ML IV SCH (15:30)
--- NOTE | 2018-07-23 15:30 | CT ---
CT abdomen and pelvis Technique: Multiple axial sections were obtained from above the dome of the diaphragm inferiorly through the pubic symphysis. Intravenous and oral contrast was not utilized. Comparison: Prior CT abdomen and pelvis exam of 08/15/17. Findings: Small portion of the visualized lung bases show nothing acute. Intrahepatic air is seen having the appearance of portal air as this air extends to the surface of the liver. Spleen is normal. Adrenal gland is slightly thickened on the left side which is felt to be incidental. Kidneys show no abnormal calcifications or hydronephrosis. Gallbladder contains no calcified gallstones. Diffuse atherosclerotic calcification is seen within the aorta and branch vessels. No retroperitoneal adenopathy is seen. Pancreas shows no discrete abnormality. Fat-containing anterior abdominal wall hernia is seen. Additional abdominal wall hernia is noted which contains a loop of small bowel. Small bowel appears dilated with what appears to be gas within portions of the bowel wall compatible with pneumatosis intestinalis. Distal small bowel loops show no dilatation. Etiology of this small bowel dilatation is not seen on this exam. Transition point appears to be close to an area of presumed surgery within the mid right abdomen. Impression: 1. Portal air as well as dilated small bowel loops and possible pneumatosis intestinalis. 2. Transition point appears to be present within the right mid abdomen in area of presumed surgery. 3. Fat-containing anterior abdominal wall hernia as well as additional small hernia containing small amount of small bowel which does not appear to be incarcerated. 4. Other incidental findings. Diagnostic code #5
[2018-07-23 16:54] VITALS: BP 110/88
[2018-07-23] MEDS ORDERED: metroNIDAZOLE/Normal Saline 500 MG in Premix Bag 1 BAG IV ONE (17:00)
[2018-07-23] MEDS ORDERED: Cefepime 2 GM in Premix Bag 1 BAG IV ONE (17:00)
--- NOTE | 2018-07-23 19:20 | CONS ---
CONSULTING PHYSICIAN: Umu Beverly MD DATE OF CONSULTATION: 07/23/2018 CHIEF COMPLAINT: Nausea and vomiting. HISTORY OF CHIEF COMPLAINT: The patient is a most pleasant 78-year-old man, who said Saturday evening he started having nausea and vomiting. He stated that this continued on throughout the night and the day, and subsequently, he decided to come in. He denies having any fevers or chills. He did have what he said was a normal bowel movement yesterday and he states that he is even still passing a little bit of gas, but no BM today. Of note, the patient has had bowel obstructions in the past. Of note, he had one done several years ago, for which he had exploratory laparotomy and resection of some bowel. This was done in the [facility] greater than probably 5 or 6 years ago. Since that time, he had a left inguinal hernia repair and he had an incisional hernia repair. Since that surgery, he has developed another hernia at the upper part of his incision. He states now that with the NG tube which put out greater than 900 mL he feels better. He denies any fevers or chills at any time. He states now the pain has improved. PAST MEDICAL HISTORY: ALLERGIES: No known allergies. HOME MEDICATIONS: 1. Ranitidine. 2. Carafate. 3. Crestor. 4. PRN Protonix. 5. Lopressor. 6. Proscar. 7. Cardizem. 8. Prolia. 9. Multivitamins. 10.He also takes an inhaler. 11.Aspirin. PAST SURGICAL HISTORY: He did have stents placed in the s. SMOKING: Yes. ALCOHOL: Yes. SOCIAL HISTORY: He just recently retired from [email or web address] and [employer]. His significant other is at his bedside. He has many brothers and sisters, 5 of which have . He has 5 children, alive and well. REVIEW OF SYSTEMS: GENERAL: No history of seizures or strokes. No thyroid, diabetes, or hepatitis. RESPIRATORY: He has chronic shortness of breath but does not appear to be on home O2. HEART: No recent history of chest pain or cardiac arrhythmia. ABDOMEN: See HPI. Of note, the patient states he has had no diarrhea or constipation and he had a colonoscopy, which he states was normal. GENITOURINARY: No hematuria or dysuria, and he states that he has been voiding. EXTREMITIES: He denies any ankle swelling or edema. He has longstanding arthritis. PHYSICAL EXAMINATION: GENERAL: He is very comfortable. VITAL SIGNS: He is afebrile. His pulse is 68. His pressure is 166/184. LUNGS: Clear. 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 HEART: Rhythm is regular. He is a bit barrel-chested. ABDOMEN: There are multiple bowel sounds, but there are no rushes and they are not high-pitched. He is totally soft without any guarding. There is a well- healed midline incision, but I was able to reduce the infraxiphoid hernia defect. There is no defect in the groins. RECTAL: There is soft stool, strong sphincter tone, and there is no mass. Stool was heme-negative. There is no ankle swelling or edema. IMAGING: KUB is consistent with bowel obstruction. Multiple air-fluid levels. LABORATORY DATA: WBC is 9600, H and H of 14 and 40. Electrolytes, sodium is 122, BUN is 15 and 9. His lactic acid is 3.3. C-reactive protein is 1.8. His BNP is 15. IMPRESSION AND PLAN: 1. Clearly, this patient has a partial small-bowel obstruction, and at this point in time, there is nothing that makes me think that we should operate at this time. I think, he needs to be aggressively resuscitated which will help correct his hyponatremia, which is due to his vomiting. We will continue him with monitoring serial exams. I clearly discussed with his significant other and 2 of his children who were at his bedside. The patient also was agreeable to the process. Continue with the NG tube, but he is okay if he has ice chips and popsicles as much as he wants with the NG tube in place. 2. Longstanding history of hypertension. 3. History of some chronic epigastric discomfort. 4. History of some heart failure. MMJAVIER /[id number]
--- NOTE | 2018-07-24 07:25 | CONS ---
CONSULTING PHYSICIAN: Umu Beverly MD DATE OF CONSULTATION: 07/23/2018 ADDENDUM: Interestingly enough, we now have the CT scan and I have reviewed the CT scan and it really is an ominous appearing examination. 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 I went back to speak with the family and clinically the patient still feels it looks good and his abdomen is benign, but clearly this is more than what we are going to follow along here. I clearly stated to the patient that there are times when this is a total disaster and require aggressive surgical intervention, and I feel that would be more than what we could do here. I also explained there are times when sometimes we do not need to operate, but monitoring these requires having multiple additional levels of care that we do not have here. I took the opportunity to speak with the surgical team in [place] of Dr. Dennis, explained the situation. He is familiar with the patient and he has accepted the patient in consultation there. Again, the family is aware and will get him on his way. CEFERINO /[id number]
== END 2018-07-23 18:40 | disposition still patient (30) | DRG 388 ==
LOC: JD.ED 12:07 → JD.MS 16:13 → JD.ED 16:19
PROVIDERS: ADMIT Family Medicine; ATTEND Family Medicine
PROC: 0D9670Z Drainage of Stomach with Drainage Device, Via Natural or Artificial Opening (ICD-10-PCS; principal; 2018-07-23)
DX: K56.609 Unspecified intestinal obstruction, unspecified as to partial versus complete obstruction (principal); K55.069 Acute infarction of intestine, part and extent unspecified; E87.1 Hypo-osmolality and hyponatremia; E87.2 Acidosis; K63.89 Other specified diseases of intestine; K43.9 Ventral hernia without obstruction or gangrene; I11.0 Hypertensive heart disease with heart failure; I50.9 Heart failure, unspecified; F17.210 Nicotine dependence, cigarettes, uncomplicated; Z79.82 Long term (current) use of aspirin; Z79.899 Other long term (current) drug therapy; R53.83 Other fatigue; R06.2 Wheezing; R06.00 Dyspnea, unspecified; M54.9 Dorsalgia, unspecified; R06.82 Tachypnea, not elsewhere classified; R11.2 Nausea with vomiting, unspecified; R10.9 Unspecified abdominal pain; R53.1 Weakness; R63.0 Anorexia; R53.81 Other malaise; R06.02 Shortness of breath; R05 Cough; Z95.5 Presence of coronary angioplasty implant and graft; Z90.49 Acquired absence of other specified parts of digestive tract
CPT/HCPCS: 36415; 71045; 74018; 74176; 80053; 83605; 83735; 83880; 84484; 85007; 85027; 85610; 86140; 93005; 96361; 96374; 96375; 99285; A9270; J1170; J2765; J7042; J0692; J3490; J7040